=== PATIENT | female | born 1940 | race Caucasian/White ===

== ENCOUNTER 2016-08-29 21:03 | Emergency (ER) | payer MEDICARE ==
--- NOTE | 2016-08-29 22:56 | RAD ---
INDICATION: Intracranial injury COMPARISON: None TECHNIQUE: Noncontrast axial source images were acquired from the skull base to the vertex. FINDINGS: Ventricles/sulci: The ventricles and cisterns are normal in size and configuration for age. Brain parenchyma: There is periventricular white matter change compatible with chronic ischemia. Intracranial hemorrhage:None. Extra-axial spaces: There are no abnormal extra axial fluid collections or evidence of extra-axial mass. Calvarium: There is thickening of the calvarium with a couple appearance suggestive of fibrous dysplasia or possibly Padget disease Scalp: There is no evidence of scalp or extracalvarial soft tissue abnormality. Paranasal sinuses/mastoid: Air-fluid level right maxillary antrum. Other: None. IMPRESSION: No acute intracranial findings. Chronic microvascular ischemic change. 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 Air-fluid level right maxillary antrum.
--- NOTE | 2016-08-29 23:00 | RAD ---
INDICATION: Fall. Facial injury. COMPARISON: None TECHNIQUE: Axial source images were acquired from the vertex of the mandible through the orbits. Coronal and sagittal reconstructed images were acquired. FINDINGS: Bones: There is no acute facial bone fracture. There is a heterogeneous appearance of the osseous structures with thickening and I pleural. 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 Orbits: The globes and intraconal structures appear intact. The optic nerves are symmetric. Extraocular muscles appear normal. There is no intraconal inflammatory change or retrobulbar mass.. Paranasal sinuses: There is mild, bilateral, mucosal thickening involving the maxillary antra with a short air-fluid level in the right maxillary antrum. Brain: There are no acute abnormalities of the visualized brain parenchyma. Soft tissues: Normal Other: None The visualized soft tissue elements about the neck appear normal. IMPRESSION: NO ACUTE FACIAL BONE FRACTURE. 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 SINUSITIS.
[2016-08-29 23:29] VITALS: BP 148/60
--- NOTE | 2016-10-10 08:36 | ED ---
Head Injury - HPI Summary HPI Summary: Patient presents after tripping on a rug and falling forward, striking her forehead and nose on the floor. She denies LOC, vomiting, amnesia or neck pain. Her nose and cheek bones hurt. No vision changes or loose teeth. - History Of Current Complaint Chief Complaint: EDHeadInjury Stated Complaint: FALL Time Seen by Provider: 08/29/16 21:58 Hx Obtained From: Patient Mechanism Of Injury: Fall From A Standing Position Onset/Duration: Started Hours Ago Onset of Pain: Immediate Severity Currently: Moderate Severity Initially: Moderate Pain Intensity: 4 Pain Scale Used: 0-10 Numeric Location of Head Injury: Frontal Character: Dull, Aching Alleviating Factor(s): Ice Associated Signs And Symptoms: Bruising - Allergies/Home Medications Allergies/Adverse Reactions: Allergies Allergy/AdvReac Type Severity Reaction Status Date / Time Clindamycin Allergy Severe Rash And Verified 01/30/15 10:08 Itching Red Dye Allergy Severe Rash And Verified 01/30/15 10:08 Itching Green Dyes Allergy Intermediate Rash And Verified 01/30/15 10:08 Itching Penicillins Allergy Unknown Unknown Verified 01/30/15 10:08 Reaction Details ivp dye Allergy Severe Shortness Uncoded 01/30/15 10:08 of Breath Opiates and derivatives Allergy Intermediate GI Upset Uncoded 01/30/15 10:08 PMH/Surg Hx/FS Hx/Imm Hx Endocrine/Hematology History: Reports: Hx Diabetes Denies: Hx Thyroid Disease Cardiovascular History: Reports: Hx Hypertension Respiratory History: Reports: Hx Asthma Denies: Hx Chronic Obstructive Pulmonary Disease (COPD) GI History: Reports: Hx Ulcer Musculoskeletal History: Reports: Hx Osteoporosis - Cancer History Hx Chemotherapy: No Hx Radiation Therapy: No - Surgical History Surgery Procedure, Year, and Place: Tuberculosis, right ankle tumors, begnin breast tumors removed, tonsillectomy, gallbladder. Bilateral cataracts removed. Infectious Disease History: Yes Infectious Disease History: Denies: Hx Hepatitis, Hx Human Immunodeficiency Virus (HIV), Traveled Outside the [place] in Last 30 Days - Family History Known Family History: Positive: Cardiac Disease, Hypertension - Social History Occupation: Retired Alcohol Use: None Substance Use Type: Reports: None Smoking Status (MU): Former Smoker Review of Systems Negative: Blurred Vision Negative: Dental Pain Negative: Chest Pain Negative: Shortness Of Breath Negative: Abdominal Pain Negative: Myalgia, Decreased ROM, Edema Positive: Bruising - nasal Negative: Headache, Weakness, Paresthesia, Numbness, Syncope All Other Systems Reviewed And Are Negative: Yes Physical Exam Triage Information Reviewed: Yes Vital Signs On Initial Exam: Initial Vitals Temp Pulse Resp BP Pulse Ox 99.7 F 72 20 141/56 95 08/29/16 21:22 08/29/16 21:22 08/29/16 21:22 08/29/16 21:22 08/29/16 21:22 Vital Signs Reviewed: Yes Appearance: Positive: Well-Appearing, No Pain Distress, Well-Nourished Skin: Positive: Warm, Skin Color Reflects Adequate Perfusion, Dry, Tender - nasal bruising, Soft Head/Face: Positive: Normal Head/Face Inspection Eyes: Positive: EOMI, RUDDY, Conjunctiva Clear ENT: Positive: Hearing grossly normal, Pharynx normal, TMs normal Dental: Negative: Percussion Tenderness @ Neck: Positive: Supple, Nontender, No Lymphadenopathy Respiratory/Lung Sounds: Positive: Clear to Auscultation, Breath Sounds Present Cardiovascular: Positive: RRR Musculoskeletal: Positive: Strength/ROM Intact Neurological: Positive: Sensory/Motor Intact, Alert, Oriented to Person Place, Time, CN Intact II-III, NV Bundle Intact Distally, Normal Gait Psychiatric: Positive: Affect/Mood Appropriate AVPU Assessment: Alert - Woodrow Coma Scale Coma Scale Total: 15 Diagnostics - Vital Signs Vital Signs Temp Pulse Resp BP Pulse Ox 08/29/16 22:30 74 18 148/60 95 08/29/16 21:22 99.7 F 72 20 141/56 95 - Laboratory Lab Statement: Any lab studies that have been ordered have been reviewed, and results considered in the medical decision making process. - CT No standard instances CT Interpretation: No Acute Changes CT Interpretation Completed By: Radiologist Head Injury Course/Dx - Diagnoses Differential Diagnosis/HQI/PQRI: Cerebral Contusion, Cervical Sprain, Concussion With LOC, Contusion, Hematoma, Laceration, Nasal Fracture, Orbital Fracture, Skull Fracture Provider Diagnoses: Head injury, Contusion of nose Discharge - Discharge Plan Condition: Stable Disposition: HOME Patient Education Materials: Head Injury (ED), Nasal Contusion (ED) Referrals: Lance Powers MD [Primary Care Provider] - Additional Instructions: Please follow-up with Dr. Powers in 1-3 days for evaluation regarding your recent fall and to discuss your chronic vein issues. Return to the emergency department if your symptoms worsen.
== END 2016-08-29 23:29 | disposition home or self-care (01) ==
LOC: ED 21:03
DX: S00.33XA Contusion of nose, initial encounter (principal); S09.90XA Unspecified injury of head, initial encounter; W19.XXXA Unspecified fall, initial encounter; Y93.9 Activity, unspecified; Y92.9 Unspecified place or not applicable; Z87.891 Personal history of nicotine dependence
CPT/HCPCS: 70450; 70486; 99282

== ENCOUNTER 2017-07-19 10:34 | Emergency (ER) | payer MEDICARE, BC ==
[2017-07-19] MEDS ORDERED: NS 0.9% 1000 ML* 1,000 ML IV ONE (11:00)
[2017-07-19 11:27] LABS: ABS Basophils 0.1 10^3/ul (0-0.2); ABS Eosinophils 0.1 10^3/ul (0-0.6); ABS Lymphocytes 0.7 10^3/ul (1.0-4.8); ABS Monocytes 0.9 10^3/ul (0-0.8); ABS Neutrophils 7.8 10^3/ul (1.5-7.7); ABS Nucleated RBC 0 10^3/ul; Eosinophil % 0.9 % (0-6); Hematocrit 41 % (35-47); Lymphocyte % 7.5 % (25-47); Mean Corpuscular HGB Conc 34 g/dl (31-36); Mean Corpuscular Hemoglobin 28 pg (27-31); Mean Corpuscular Volume 83 fL (80-97); Mean Platelet Volume 11 um3 (7.4-10.4); Nucleated Red Blood Cells % 0; Platelet Count 170 10^3/ul (150-450); Red Blood Count 4.97 10^6/ul (4.0-5.4); Red Cell Distribution Width 14 % (10.5-15); White Blood Count 9.5 10^3/ul (3.5-10.8)
--- OUTSIDE RECORDS SUMMARY | 2017-07-19 11:40 | XMS REPORT ---
:1940 External Reference #:[id number] Author Organization [facility] Address [address] [address] Phone [phone] Care Team Providers Name Role Phone Lance Powers MD Care Team Information Inserting Operator Unavailable Lance Powers MD Primary Care Physician Unavailable Payers Type Date Identification Numbers Payment Provider Subscriber Medicare Primary Policy Number: [id number] Medicare Vega Villalpando PayID: [id number] [address] [place] [address] Medigap Part B Policy Number: [id number] [facility] Vega Villalpando PayID: [id number] [address] [place] [address] Problems Date Description Provider Status Onset: 04/22/2017 Disturbance in sleep behavior Pearl Mesa MD Active Family History Date Family Member(s) Problem(s) Comments General Hypertension Father Alzheimer's Disease Father due to Alzheimer's Disease () - at age 64 Father Diabetes Type II Father Coronary Artery Disease (CAD) Father Hypertension Father Hypercholesterolemia Mother Cerebrovascular Accident (CVA) Mother due to CAD () - at age 80 Mother Coronary Artery Disease (CAD) Mother Hypertension Siblings None Social History Type Date Description Comments Marital Status Single Marital Status Lives With Alone 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 General Hx Text emigrated to [place] from [facility] in 1965 has one son in [place]. Allergies, Adverse Reactions, Alerts Date Description Reaction Status Severity Comments 11/30/2016 Clindamycin active 11/30/2016 NSAIDS active 11/30/2016 Opiods - Morphine Analogues active 11/30/2016 Penicillin active Medications Medication Date Status Form Strength Qnty SIG Indications Ordering Provider Nitroglycerin 02/28/ Active Patches 0.1mg/HR 30unit 1 patch Sukhi 2016 24HR s every day F. on in the [place], in the M.D. morning, off in the at night Accu-Chek Soft / Active Misc Unknown Touch Lancets 0000 Atorvastatin / Active Tablets 20mg take 1 Unknown Calcium 0000 tablet a day Lisinopril / Active Tablets 20mg 1/2 by Unknown 0000 mouth every day Sertraline HCL / Active Tablets 25mg 1/2 by Unknown 0000 mouth every day Verapamil HCL / Active Caps ER 180mg 1 by mouth Unknown ER 0000 24HR every day Eye Vitamins / Active Capsules 1 daily Unknown 0000 Novolog Flexpen / Active Solution 100Unit/ML sliding Law, 0000 Pen-Inject scale MD Lance Clobetasol / Active Solution 0.05% as Mark, Propionate 0000 directed MD Olena Oxygen 12/15/ Hx Misc 1units please use Sukhi 2016 - o2 at F. 06/21/ [place] [facility] [place] ( pt M.D. does not use) Clobetasol / Hx Cream 0.05% Unknown Propionate 0000 - 2006 Insullin Aspart / Hx 100Unit 60u TDD Unknown Pen 0000 - (3ML) 2016 Lantus Solostar / Hx Solution 100Unit/ML as Unknown 0000 - Pen-Inject directed, 04/21/ 60units 2016 Metamucil Plus / Hx Capsules 1 cap prn Unknown Calcium 0000 - 2016 Multivitamin // Hx Chewtabs once a day Unknown Adult 0000 - 2016 Famotidine / Hx Tablets 20mg take one Unknown 0000 - tablet by 2016 twice a day Pantoprazole / Hx Tablets DR 20mg 1 by mouth Unknown Sodium 0000 - every day 2016 Humalog Kwikpen 00// Hx Solution 100Unit/ML sliding Unknown 0000 - Pen-Inject scale 2016 Vital Signs Date Vital Result Comment 06/22/2017 Height 61 inches 5'1" Weight 172.75 lb with shoes Heart Rate 82 /min BP Systolic Sitting 146 mmHg LA reg cuff BP Diastolic Sitting 82 mmHg LA reg cuff BMI (Body Mass Index) 32.6 kg/m2 Ejection Fraction >70% echo 12/31/16 04/22/2017 Height 61 inches 5'1" Weight 171.00 lb Heart Rate 60 /min BP Systolic Sitting 100 mmHg BP Diastolic Sitting 66 mmHg Respiratory Rate 14 /min O2 % BldC Oximetry 95 % BMI (Body Mass Index) 32.3 kg/m2 Neck Circumference in inches 17 03/04/2017 Height 61 inches 5'1" Weight 174.00 lb with shoes Heart Rate 72 /min BP Systolic Sitting 110 mmHg Lue lg cuff BP Diastolic Sitting 56 mmHg Lue lg cuff BP Systolic Standing 114 mmHg Lue lg cuff BP Diastolic Standing 60 mmHg Lue lg cuff Respiratory Rate 16 /min BMI (Body Mass Index) 32.9 kg/m2 Ejection Fraction >70% 12/31/16 ECHO 11/30/2016 Height 61 inches 5'1" Weight 172.75 lb with shoes Heart Rate 84 /min BP Systolic Sitting 138 mmHg LA lrg cuff BP Diastolic Sitting 64 mmHg LA lrg cuff BP Systolic Standing 123 mmHg la repeat sitting BP Diastolic Standing 62 mmHg la repeat sitting BMI (Body Mass Index) 32.6 kg/m2 Results Description No Information Procedures Date CPT Code Description Status 06/22/2017 64461 EKG Tracing & Interpretation Completed 06/07/2017 14421 Polysomnography Sleep Staging 4+ Parameters Completed 01/31/2017 53395 Stress ECHO Interpretation/Report Hospital Completed 01/31/2017 36986 Treadmill Interp/Report Only Completed 01/31/2017 64586 Stress Test Supervsn W/Out I/R Completed 12/31/2016 53823 ECHO Transthoracic, Real-Time 2D With Doppler And Color Completed Flow 12/21/2016 18106 Holter Monitor Review (24 hr)dr castañeda & interp Completed only 12/20/2016 24496 ECG Monitor/Recording W/Visual Superimposition Scanning Completed 11/30/2016 98000 EKG Tracing & Interpretation Completed 11/05/2003 97404 Color Doppler Completed 11/05/2003 82691 Pulse Doppler & Continuous Wave Completed 11/05/2003 74292 Echocardiogram Completed Encounters Type Date Location Provider CPT E/M Dx Office Visit 06/22/2017 11:00a [facility] Sukhi Ribeiro, 62453 G47.33 M.DWilla G47.9 R00.2 I35.0 R06.00 I10 I25.10 Office Visit 04/22/2017 11:00a [facility] [place] [address] G47.9 [facility] F51.5 Office Visit 03/04/2017 2:30p [facility] IRENE Warren [address] R00.2 I35.0 R06.00 R07.9 I10 R94.39 Office Visit 01/31/2017 4:23p [facility] Sukhi Ribeiro M.D. 23263 R07.9 R06.00 Office Visit 11/30/2016 2:00p [facility] Sukhi Ribeiro, 53509 R94.31 M.DWilla R07.89 R00.2 I73.9 R07.9 E08.21 R01.1 I49.1 G47.9 E66.9 Plan of Care Future Appointment(s):09/14/2017 1:30 pm - Sukhi Ribeiro M.D. at [facility]07/13/2017 2:00 pm - Nurse Visit cc at [facility]07/06/2017 2 :10 pm - Herrera Pratt MD at [facility] Unezepfriag42/03/2018 11:15 am - Yvette Lemon DNP, RN, SWITCH CLEANER-BC at [facility]06/22/2017 - Sukhi Ribeiro M.D.G47.33 Obstructive sleep apnea (adult) (pediatric) Follow up:followup with sleep zxybvbG89.9 Sleep disorder, ewkwtwctzdmC03.2 MwgjogwsqsmjL20.0 Nonrheumatic aortic (valve) stenosisFollow up:bp check in 2-3 weeks ov 3 mR06.00 Dyspnea, tmxtvanjbahI12 Essential (primary) iucecejaqpmrV22.10 Athscl heart disease of [place] coronary artery w/o ang pctrs
--- OUTSIDE RECORDS SUMMARY | 2017-07-19 11:40 | XMS REPORT ---
:1940 External Reference #:[id number] Author Organization [facility] Address [address] [address] Phone [phone] Care Team Providers Name Role Phone Lance Powers MD Care Team Information Personal Insurance Advisor Unavailable Lance Powers MD Primary Care Physician Unavailable Payers Type Date Identification Numbers Payment Provider Subscriber Medicare Primary Policy Number: [id number] Medicare Vega Villalpando PayID: [id number] [address] [place] [address] Medigap Part B Policy Number: [id number] [facility] Vega Villalpando PayID: [id number] [address] [place] [address] Problems Date Description Provider Status Onset: 04/22/2017 [...] Lives With Alone 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 Allergies, Adverse Reactions, Alerts Date Description Reaction Status Severity Comments 11/30/2016 Clindamycin active 11/30/2016 NSAIDS active 11/30/2016 Opiods - Morphine Analogues active 11/30/2016 Penicillin active Medications Medication Date Status Form Strength Qnty SIG Indications Ordering Provider Nitroglycerin 02/28/ Active Patches 0.1mg/HR 30unit 1 patch Sukhi 2016 24HR s every day F. on in the [place], in the M.D. morning, off in the [...] Flexpen / Active Solution 100Unit/ML sliding Law, Pen-Inject scale MD Lance Clobetasol / Active Solution 0.05% as Mark, Propionate 0000 directed MD Olena Oxygen 12/15/ Hx Misc 1units please use Sukhi 2016 - o2 at [place]. 06[place] [facility] [place] ( pt M.D. does not use) Clobetasol / Hx Cream 0.05% Unknown Propionate 0000 - 2006 Insullin Aspart / Hx 100Unit 60u TDD Unknown Pen 0000 - (3ML) 2016 Lantus Solostar / Hx Solution 100Unit/ML as Unknown 0000 - Pen-Inject directed, 04/21/ 60units 2016 Metamucil Plus / Hx Capsules 1 cap prn Unknown Calcium 0000 - 2016 Multivitamin / Hx Chewtabs once a day Unknown Adult 0000 - 2016 Famotidine / Hx Tablets 20mg take one Unknown 0000 - tablet by 2016 twice a day Pantoprazole / Hx Tablets DR 20mg 1 by mouth Unknown Sodium 0000 - every day 2016 Humalog Kwikpen 00/00/ Hx Solution 100Unit/ML sliding Unknown 0000 - Pen-Inject scale 2016 Vital Signs Date Vital Result Comment 07/06/2017 Height 61 inches 5'1" Weight 174.25 lb no shoes Heart Rate 86 /min BP Systolic Sitting 140 mmHg Lue reg cuff BP Diastolic Sitting 84 mmHg Lue reg cuff Respiratory Rate 16 /min O2 % BldC Oximetry 96 % On Ra BMI (Body Mass Index) 32.9 kg/m2 06/22/2017 Height 61 inches 5'1" Weight 172.75 [...] Procedures Date CPT Code Description Status 06/22/2017 04690 EKG Tracing & Interpretation Completed 06/07/2017 02670 Polysomnography Sleep Staging 4+ Parameters Completed 01/31/2017 69198 Stress ECHO Interpretation/Report Hospital Completed 01/31/2017 24667 Treadmill Interp/Report Only Completed 01/31/2017 30386 Stress Test Supervsn W/Out I/R Completed 12/31/2016 49055 ECHO Transthoracic, Real-Time 2D With Doppler And Color Completed Flow 12/21/2016 93113 Holter Monitor Review (24 hr)dr castañeda & rosalva Completed only 12/20/2016 84059 ECG Monitor/Recording W/Visual Superimposition Scanning Completed 11/30/2016 04806 EKG Tracing & Interpretation Completed 11/05/2003 06978 Color Doppler Completed 11/05/2003 85251 Pulse Doppler & Continuous Wave Completed 11/05/2003 14699 Echocardiogram Completed Encounters Type Date Location Provider CPT E/M Dx Office Visit 06/22/2017 11:00a [facility] Sukhi Ribeiro, [address]72 G47.33 M.D. G47.9 R00.2 I35.0 R06.00 I10 I25.10 Office Visit 04/22/2017 11:00a [facility] [place] [address] G47.9 [facility] F51.5 Office Visit 03/04/2017 2:30p [facility] IRENE Warren [address]82[address] R00.2 I35.0 R06.00 R07.9 I10 R94.39 Office Visit 01/31/2017 4:23p [facility] Sukhi Ribeiro M.D. 05450 R07.9 R06.00 Office Visit 11/30/2016 2:00p [facility] Sukhi Ribeiro, 08092 R94.31 M.D. R07.89 R00.2 I73.9 R07.9 E08.21 R01.1 I49.1 G47.9 E66.9 Plan of Care Future Appointment(s):09/07/2017 1:30 pm - Yvette Lemon DNP, RN, PRESALES ENGINEER-BC at [facility]09/14/2017 1:30 pm - Sukhi Ribeiro M.D. at [facility]07/13/2017 2:00 pm - Nurse Visit cc at [facility]07/06/2017 - Yvette Lemon DNP, RN, PRESALES ENGINEER-BCG47.33 Obstructive sleep apnea (adult) (pediatric)Comments:NPSG 06/07/17 AHI 35.8/hour, ravi oxygen 82 % (severe sleep apnea)Follow up:6 weeksRecommendations:Sleep apnea to start PAP at 5-15 cm Review of sleep study in detail. Review of risks of untreated sleep apnea including cardiovascular events : rhythm irregularities, heart attack, stroke; gastro esophageal reflux disease (GERD); diabetes; anxiety, depression; highblood pressure; accidents (machinery and automobile) Recommendation for PAP other treatment modalities NON-PAP including oral appliance/mandibular advancement device, positional strategies , and surgery discussed. Referral for PAP device to be sent to [facility] phone: [phone] Equipment appointment will take about 45 minutes, the DME provider will call you within 5 days to set you up for the device. If you do not hear from them call the Sleep Center. The mask will have a 30-day guarantee, if you have mask problems call the DME provider to have a fitting for a different mask. If you have problems with the air pressure call the sleep center and speak toa nurse. If you have any sleepiness while driving you MUST avoid operating a vehicle or machinery. If you have any further questions, please call the Sleep Disorder Center at [phone].
[2017-07-19 11:43] LABS: EGFR Non-African American 60.1 (>60)
--- NOTE | 2017-07-19 12:16 | RAD ---
Indication: Hypoglycemia. Comparison: March 12, 2010 chest radiograph. Technique: Upright AP 1125 hours Report: Obese body habitus limits image quality. Chronic mild to moderate elevation of the RIGHT hemidiaphragm with minimal associated RIGHT basilar atelectasis. Mild prominence of the interstitial markings. No compelling alveolar consolidation or focal pulmonary lesion. Grossly clear pleural spaces. Negative for pneumothorax. Accounting for leftward rotation the heart appears top normal in size. Unremarkable central pulmonary vasculature. IMPRESSION: No acute cardiopulmonary process evident.
[2017-07-19] MEDS ORDERED: Magnesium Oxide TAB* 400 MG PO ONE (12:20)
[2017-07-19 12:21] LABS: Urine Appearance Clear; Urine Specific Gravity 1.005 (1.010-1.030); Urine Urobilinogen Negative (Negative)
[2017-07-19 12:22] LABS: Urine Blood Negative (Negative); Urine Ketones Negative (Negative); Urine Protein Negative (Negative)
[2017-07-19 12:25] LABS: Urine Color Straw
[2017-07-19 12:45] VITALS: BP 167/72
[2017-07-19 13:09] LABS: INR 0.95 (0.77-1.02)
--- NOTE | 2017-07-19 19:54 | ED ---
Eb Benitez Angela, scribed for Kate Simpson MD on 07/19/17 at 1111 . HPI Diabetic - HPI Summary HPI Summary: This pt is a 77 y/o female presenting to [facility] via EMS c/o hypoglycemia today. Pt is an insulin dependent diabetic. Pt reports she checked her blood glucose today and it was 45 before breakfast. She gave her self 55 units of Toujeo and 14 units of Novolog. Pt notes she began to have visual changes, generalized weakness, felt tired and sleepy. Pt called the ambulance and EMS found the pt to have blood glucose of 79 and when rechecked it was 69. EMS additionally administered 250 CC D10. Pt denies chest pain, SOB, abd pain, vomiting, edema. She reports she had a bowel movement this morning and has had no difficulties urinating. PMHx: IDDM, sleep apnea, heart fluttering. 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 Pt reports she has been on BIPAP for 1 week and her blood glucose has been dropping ever since this started. PCP: Dr. Lance Powers. - History Of Current Complaint Chief Complaint: EDDiabeticProb Time Seen by Provider: 07/19/17 11:00 Hx Obtained From: Patient Onset/Duration: Lasting Hours, Resolved Timing: Hours Severity Initially: Severe Severity Currently: None Character: Lethargic Alleviating: EMS Treatment - 250 CC of D10 Associated Signs & Symptoms: Negative - denies any complaints currently - Allergies/Home Medications Allergies/Adverse Reactions: Allergies Allergy/AdvReac Type Severity Reaction Status Date / Time Clindamycin Allergy Severe Rash And Verified 01/30/15 10:08 Itching Red Dye Allergy Severe Rash And Verified 01/30/15 10:08 Itching Green Dyes Allergy Intermediate Rash And Verified 01/30/15 10:08 Itching Penicillins Allergy Unknown Unknown Verified 01/30/15 10:08 Reaction Details NSAIDs Allergy Unknown Verified 01/28/17 15:30 Reaction Details ivp dye Allergy Severe Shortness Uncoded 01/30/15 10:08 of Breath Opiates and derivatives Allergy Intermediate GI Upset Uncoded 01/30/15 10:08 PMH/Surg Hx/FS Hx/Imm Hx Endocrine/Hematology History: Reports: Hx Diabetes Denies: Hx Thyroid Disease Cardiovascular History: Reports: Hx Angina, Hx Atrial Fibrillation, Hx Hypertension, Hx Valvular Heart Disease Respiratory History: Reports: Hx Asthma Denies: Hx Chronic Obstructive Pulmonary Disease (COPD) GI History: Reports: Hx Ulcer Musculoskeletal History: Reports: Hx Osteoporosis - Cancer History Hx Chemotherapy: No Hx Radiation Therapy: No - Surgical History Surgery Procedure, Year, and Place: Tuberculosis, right ankle tumors, begnin breast tumors removed, tonsillectomy, gallbladder. Bilateral cataracts removed. 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 Denies: Hx Clostridium Difficile, Hx Hepatitis, Hx Human Immunodeficiency Virus (HIV), Hx of Known/Suspected MRSA, History Other Infectious Disease, Traveled Outside the [place] in Last 30 Days - Family History Known Family History: Positive: Cardiac Disease, Hypertension - Social History Alcohol Use: None Substance Use Type: Reports: None Smoking Status (MU): Former Smoker Type: Cigarettes Amount Used/How Often: 4-5 day Have You Smoked in the Last Year: No Review of Systems Positive: Fatigue - now resolved, Other - tired, now resolved. Negative: Fever Eyes: Other - visual changes, now resolved Negative: Chest Pain Negative: Shortness Of Breath Negative: Abdominal Pain, Vomiting Negative: Edema All Other Systems Reviewed And Are Negative: Yes Physical Exam - Summary Physical Exam Summary: Appearance: Ill-appearing, no pain distress, Well-nourished Skin: Warm, color reflects adequate perfusion Head: Normal Head/Face inspection Eyes: Conjunctiva clear ENT: Normal ENT inspection Neck: Supple, no nodes, no JVD Respiratory: Lungs clear, Normal breath sounds, no respiratory distress Cardio: RRR, No murmur, pulses normal, brisk capillary refill Abdomen: soft, nontender Bowel sounds: present Musculoskeletal: Strength Intact/ ROM intact. No calf tenderness. No edema. Neuro: Alert, muscle tone normal, facial symmetry, speech normal, sensory/motor intact Psychological: Normal Triage Information Reviewed: Yes Vital Signs On Initial Exam: Initial Vitals Temp Pulse Resp BP Pulse Ox 98 F 82 20 184/58 97 07/19/17 10:54 07/19/17 10:54 07/19/17 10:54 07/19/17 10:54 07/19/17 10:54 Vital Signs Reviewed: Yes Diagnostics - Vital Signs Vital Signs Temp Pulse Resp BP Pulse Ox 07/19/17 10:54 98 F 82 20 184/58 97 - Laboratory Lab Results: Lab Results 07/19/17 07/19/17 07/19/17 Range/Units 11:17 11:17 11:17 WBC 9.5 (3.5-10.8) 10^3/ul RBC 4.97 (4.0-5.4) 10^6/ul Hgb 14.0 (12.0-16.0) g/dl Hct 41 (35-47) % MCV 83 (80-97) fL MCH 28 (27-31) pg MCHC 34 (31-36) g/dl RDW 14 (10.5-15) % Plt Count 170 (150-450) 10^3/ul MPV 11 H (7.4-10.4) um3 Neut % (Auto) 81.8 (38-83) % Lymph % (Auto) 7.5 L (25-47) % Kern % (Auto) 9.2 H (1-9) % Eos % (Auto) 0.9 (0-6) % Baso % (Auto) 0.6 (0-2) % Absolute Neuts (auto) 7.8 H (1.5-7.7) 10^3/ul Absolute Lymphs (auto) 0.7 L (1.0-4.8) 10^3/ul Absolute Monos (auto) 0.9 H (0-0.8) 10^3/ul Absolute Eos (auto) 0.1 (0-0.6) 10^3/ul Absolute Basos (auto) 0.1 (0-0.2) 10^3/ul Absolute Nucleated RBC 0 10^3/ul Nucleated RBC % 0 INR (Anticoag Therapy) 0.95 (0.77-1.02) APTT 32.1 (26.0-36.3) seconds Sodium 135 (133-145) mmol/L Potassium 4.3 (3.5-5.0) mmol/L Chloride 101 (101-111) mmol/L Carbon Dioxide 29 (22-32) mmol/L Anion Gap 5 (2-11) mmol/L BUN 15 (6-24) mg/dL Creatinine 0.91 (0.51-0.95) mg/dL Est GFR ( Amer) 77.3 (>60) Est GFR (Non-Af Amer) 60.1 (>60) BUN/Creatinine Ratio 16.5 (8-20) Glucose 161 H (70-100) mg/dL POC Glucose (mg/dL) (70-100) mg/dL Lactic Acid (0.5-2.0) mmol/L Calcium 9.6 (8.6-10.3) mg/dL Magnesium 1.6 L (1.9-2.7) mg/dL Total Bilirubin 0.50 (0.2-1.0) mg/dL AST 15 (13-39) U/L ALT 13 (7-52) U/L Alkaline Phosphatase 71 (34-104) U/L Total Creatine Kinase 52 (10-223) U/L Troponin I 0.03 (<0.04) ng/mL C-Reactive Protein 2.73 (< 5.00) mg/L Total Protein 7.0 (6.4-8.9) g/dL Albumin 4.0 (3.2-5.2) g/dL Globulin 3.0 (2-4) g/dL Albumin/Globulin Ratio 1.3 (1-3) Lipase 17 (11.0-82.0) U/L Urine Color Urine Appearance Urine pH (5-9) Ur Specific [place] (1.010-1.030) Urine Protein (Negative) Urine Ketones (Negative) Urine Blood (Negative) Urine Nitrate (Negative) Urine Bilirubin (Negative) Urine Urobilinogen (Negative) Ur Leukocyte Esterase (Negative) Urine WBC (Auto) (Absent) Urine RBC (Auto) (Absent) Ur Squamous Epith Cells (Absent) Urine Bacteria (Absent) Urine Glucose (Negative) 07/19/17 07/19/17 07/19/17 Range/Units 11:17 11:30 12:43 WBC (3.5-10.8) 10^3/ul RBC (4.0-5.4) 10^6/ul Hgb (12.0-16.0) g/dl Hct (35-47) % MCV (80-97) fL MCH (27-31) pg MCHC (31-36) g/dl RDW (10.5-15) % Plt Count (150-450) 10^3/ul MPV (7.4-10.4) um3 Neut % (Auto) (38-83) % Lymph % (Auto) (25-47) % Kern % (Auto) (1-9) % Eos % (Auto) (0-6) % Baso % (Auto) (0-2) % Absolute Neuts (auto) (1.5-7.7) 10^3/ul Absolute Lymphs (auto) (1.0-4.8) 10^3/ul Absolute Monos (auto) (0-0.8) 10^3/ul Absolute Eos (auto) (0-0.6) 10^3/ul Absolute Basos (auto) (0-0.2) 10^3/ul Absolute Nucleated RBC 10^3/ul Nucleated RBC % INR (Anticoag Therapy) (0.77-1.02) APTT (26.0-36.3) seconds Sodium (133-145) mmol/L Potassium (3.5-5.0) mmol/L Chloride (101-111) mmol/L Carbon Dioxide (22-32) mmol/L Anion Gap (2-11) mmol/L BUN (6-24) mg/dL Creatinine (0.51-0.95) mg/dL Est GFR ( Amer) (>60) Est GFR (Non-Af Amer) (>60) BUN/Creatinine Ratio (8-20) Glucose (70-100) mg/dL POC Glucose (mg/dL) 199 H (70-100) mg/dL Lactic Acid 1.4 (0.5-2.0) mmol/L Calcium (8.6-10.3) mg/dL Magnesium (1.9-2.7) mg/dL Total Bilirubin (0.2-1.0) mg/dL AST (13-39) U/L ALT (7-52) U/L Alkaline Phosphatase (34-104) U/L Total Creatine Kinase (10-223) U/L Troponin I (<0.04) ng/mL C-Reactive Protein (< 5.00) mg/L Total Protein (6.4-8.9) g/dL Albumin (3.2-5.2) g/dL Globulin (2-4) g/dL Albumin/Globulin Ratio (1-3) Lipase (11.0-82.0) U/L Urine Color Straw Urine Appearance Clear Urine pH 6 (5-9) Ur Specific [place] 1.005 L (1.010-1.030) Urine Protein Negative (Negative) Urine Ketones Negative (Negative) Urine Blood Negative (Negative) Urine Nitrate Negative (Negative) Urine Bilirubin Negative (Negative) Urine Urobilinogen Negative (Negative) Ur Leukocyte Esterase 1+ H (Negative) Urine WBC (Auto) 3+(>20/hpf) H (Absent) Urine RBC (Auto) 2+(6-10/hpf) H (Absent) Ur Squamous Epith Cells Present H (Absent) Urine Bacteria 1+ H (Absent) Urine Glucose Negative (Negative) Result Diagrams: 07/19/17 11:17 07/19/17 11:17 Lab Statement: Any lab studies that have been ordered have been reviewed, and results considered in the medical decision making process. - Radiology Chest XR Xray Interpretation: No Acute Changes - IMPRESSION: No acute cardiopulmonary process evident. Dr. Simpson has reviewed this radiology report. Radiology Interpretation Completed By: Radiologist - EKG 11:11 Cardiac Rate: NL EKG Rhythm: Sinus Rhythm - at [address] Segment: Non-Specific Ectopy: None EKG Interpretation: Nml AVIVCT. Nml QTc. Negative axis (-42). EKG Comparison: No Significant Change - no significant change compared to . Re-Evaluation - Re-Evaluation First Eval Re-Evaluation Time: 12:23 Comment: Pt just finished eating lunch. Diabetic Course/Dx - Course Course Of Treatment: Pt medications reviewed this visit. Allergies noted. High blood pressure noted. Chest XR is negative. EKG shows NSR with Nml AVIVCT. Nml QTc. Negative axis (-42). Pt's repeat glucose in the ED was 199. In the ED course, the pt was given IV fluids and magnesium oxide. Pt will be discharged home and is advised to follow up with her PCP. - Diagnoses Provider Diagnoses: Hypoglycemia Discharge - Discharge Plan Condition: Stable Disposition: HOME Patient Education Materials: Hypoglycemia in a Person with Diabetes (ED) Referrals: Lance Powers MD [Primary Care Provider] - 2 Days Additional Instructions: RETURN TO THE EMERGENCY DEPARTMENT FOR ANY NEW OR WORSENING SYMPTOMS. The documentation as recorded by the Eb rai Angela accurately reflects the service I personally performed and the decisions made by Calvin castellanos Barbara J, MD.
== END 2017-07-19 12:59 | disposition home or self-care (01) ==
LOC: ED 10:34
DX: E16.2 Hypoglycemia, unspecified (principal); R53.83 Other fatigue; E11.9 Type 2 diabetes mellitus without complications; Z87.891 Personal history of nicotine dependence
CPT/HCPCS: 36415; 71045; 80053; 81003; 81015; 82550; 83605; 83690; 83735; 84484; 85025; 85610; 85730; 86140; 87086; 93005; 96360; 99284

== ENCOUNTER 2018-11-26 10:51 | Emergency (ER) | payer MEDICARE, BC ==
--- OUTSIDE RECORDS SUMMARY | 2018-11-26 10:59 | XMS REPORT | Continuity of Care Document ---
:1940 External Reference #:[id number] Author Name Bhavesh Taylor, OD Address [address] [place] [address] Care Team Providers Name Role Phone Lance Powers MD Care Team Information Exhibit Technician Unavailable Law CAPUTO, Lance Primary Care Physician Unavailable Payers Date Identification Numbers Payment Provider Subscriber Policy Number: [id number] [employer] [place] [place] PayID: [id number] [address] [place] [address] Policy Number: [id number] [employer] PayID: [id number] [address] [place] [address] Problems Active Problems Provider Date Type 2 diabetes mellitus Austyn Lainez M.D. Onset: 03/13/2015 Presence of intraocular lens Austyn Lainez M.D. Onset: 03/13/2015 Epiretinal membrane Austyn Lainez M.D. Onset: 03/13/2015 Family History Date Family Member(s) Observation Comments General Cancer General Aunt Father Cataract Father Heart Disease Mother Cataract Mother Heart Disease Social History Type Date Description Comments Sex Unknown ETOH Use Denies alcohol use Tobacco Use Start: Unknown Patient has never smoked Smoking Status Reviewed: 11/14/18 Patient has never smoked Allergies, Adverse Reactions, Alerts Active Allergies Reaction Severity Comments Date Penicillin 03/13/2015 Strawberries 10/23/2015 Medications Active Medications SIG Qnty Indications Ordering Provider Date Probiotic Unknown Tablets DR Zinc 50mg Unknown Tablets Selenium 50mcg Unknown Tablets Icaps Areds Formula Unknown Tablets Lutein 20mg Unknown Capsules B Complex Unknown Tablets Metoprolol Succinate ER Unknown 25mg Tablets ER 24HR Amlodipine Besylate Unknown 5mg Tablets Triamcinolone Acetonide Unknown 0.1% Cream Pantoprazole Sodium Unknown 20mg Tablets DR Clari Carlton Unknown 100Unit/ML Solution Pen-Inject Atorvastatin Calcium Law CAPUTO, Lance 20mg Tablets Verapamil HCL ER Law CAPUTO, Lance 180mg Tablets ER Sertraline HCL Law CAPUTO, Lance 25mg Tablets Clobetasol Propionate Unknown 0.05% Solution Lisinopril 20mg Law CAPUTO, Lance Tablets Chatotus Rao Powers MD, Lance 100Unit/ML Solution Pen-Inject History Medications Wilver 128 1/4 inch ribbon 3.500gm Bhavesh Taylor, OD 05/17/2018 - 5% Ointment onto ocular 11/14/2018 surface every night at bedtime both eyes Ocusoft Lid Scrub Plus apply to outer 30units Bhavesh Taylor, OD 2015 - eyelids bid OU 11/14/2018 Pads Azithromycin Unknown - 250mg 05/17/2018 Tablets Vital Signs Date Vital Result Comment 11/14/2017 10:11am Intraocular Pressure Right Eye 15 mmHg Intraocular Pressure Left Eye 15 mmHg 10/28/2016 10:48am Intraocular Pressure Right Eye 15 mmHg Intraocular Pressure Left Eye 15 mmHg 04/29/2016 1:21pm Intraocular Pressure Right Eye 14 mmHg Intraocular Pressure Left Eye 14 mmHg 10/23/2015 10:28am Intraocular Pressure Right Eye 15 mmHg Intraocular Pressure Left Eye 15 mmHg 03/13/2015 8:23am Intraocular Pressure Right Eye 15 mmHg Intraocular Pressure Left Eye 15 mmHg Procedures Date Code Description Status 05/17/2018 12191 Oct Retina Completed 05/17/2018 38811 Eye Exam Est Intermediate Completed 11/14/2017 40922 Fundus Photography W/Interpretation & Report Completed 11/14/2017 79119 Refraction Completed 11/14/2017 25904 Eye Exam Est Intermediate Completed 04/29/2017 86479 Oct Retina Completed 04/29/2017 93563 Eye Exam Est Intermediate Completed 10/28/2016 38208 Ophthalmoscopy Subsequent Completed 10/28/2016 98575 Oct Retina Completed 10/28/2016 34616 Refraction Completed 10/28/2016 49243 Eye Exam Est Comprehensive Completed 09/23/2016 23784 Eye Exam Est Intermediate Completed 04/29/2016 01723 Oct Retina Completed 04/29/2016 54976 Eye Exam Est Intermediate Completed 10/23/2015 84655 Eye Exam Est Intermediate Completed 10/23/2015 34980 Fundus Photography W/Interpretation & Report Completed 04/21/2015 83894 Oct Retina Completed 04/21/2015 98807 Eye Exam Est Intermediate Completed 03/13/2015 48160 Fundus Photography W/Interpretation & Report Completed 03/13/2015 63993 Refraction Completed 03/13/2015 40772 Eye Exam Est Comprehensive Completed 03/09/2011 26504 Fundus Photography W/Interpretation & Report Completed 03/09/2011 16627 Ophthalmoscopy Subsequent Completed 03/09/2011 62580 Eye Exam Est Comprehensive Completed 05/07/2009 84453 Fundus Photography W/Interpretation & Report Completed 05/07/2009 04304 Ophthalmoscopy Initial Completed 05/07/2009 77427 Refraction Completed 05/07/2009 42011 Eye Exam New Comprehensive Completed Plan of Treatment 11/14/2018 - Bhavesh Taylor, ODH35.342 Macular cyst, hole, or pseudohole, left eyeH35.371 Puckering of macula, right eyeZ96.1 Presence of intraocular lensH18.51 Endothelial corneal [id number] Type 2 diabetes mellitus without lgeqmwiwcejywV26.4 PresbyopiaFollow up:6 mos mac OCT, sooner PRN
--- OUTSIDE RECORDS SUMMARY | 2018-11-26 10:59 | XMS REPORT | Continuity of Care Document ---
:1940 External Reference #:[id number] Author Name Jackeline Kelly Care Team Providers Name Role Phone Lance Powers MD Primary Care Physician Unavailable Payers Date Identification Numbers Payment Provider Subscriber Policy Number: [id number] Medicare Vega Villalpando PayID: [id number] [address] [place] [address] Policy Number: [id number] [facility] Vega Villalpando PayID: [id number] [address] [place] [address] Advance Directives Description No Information Available Problems Active Problems Provider Date Disturbance in sleep behavior Pearl Mesa MD Onset: 04/22/2017 Obstructive sleep apnea syndrome Yvette Lemon DNP, RN, Onset: 09/07/2017 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 Arthralgia of the ankle and/or foot Snow Menjivar MD Onset: 01/24/2018 Knee joint effusion Snow Menjivar MD Onset: 12/30/2017 Localized, primary osteoarthritis Snow Menjivar MD Onset: 12/30/2017 Family History Date Family Member(s) Observation Comments General Hypertension Father Alzheimer's Disease Father due to Alzheimer's Disease () - at age 64 Father Diabetes Type II Father Coronary Artery Disease (CAD) Father Hypertension Father Hypercholesterolemia Mother Cerebrovascular Accident (CVA) Mother due to CAD () - at age 80 Mother Coronary Artery Disease (CAD) Mother Hypertension Siblings None Social History Type Date Description Comments Sex Unknown Marital Status Single Marital Status Lives With Alone 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 [employer] Cigarette Use Quit 50 Years Ago 50+ years ago ETOH Use Denies alcohol use Tobacco Use Start: Unknown Patient is a former smoked 4 cigarettes End: Unknown smoker per day for 6yrs Recreational Drug Use Denies Drug Use Smoking Status Reviewed: 11/08/18 Patient is a former smoked 4 cigarettes smoker per day for 6yrs Exercise Type/Frequency Exercises regularly 2-3 minutes of routine exercise daily Allergies, Adverse Reactions, Alerts Active Allergies Reaction Severity Comments Date Clindamycin 11/30/2016 NSAIDS 11/30/2016 Opiods - Morphine Analogues 11/30/2016 Penicillin 11/30/2016 Medications Active Medications SIG Qnty Indications Ordering Provider Date Magnesium Taurate 1 po qd (125 mg) Sukhi Goldstein 10/12/2018 Clemencia Ribeiro Amlodipine Besylate 1.5 by mouth 90tabs I25.10 Sukhi Goldstein 05/01/2018 5mg every day Clemencia Ribeiro Tablets Metoprolol Succinate 1 by mouth every 45tabs I25.10 Lee Ann Ramirez, 05/01 ER day N.P. 25mg Tablets ER 24HR Shower Transfer Bench Disp 1 shower 1units M25.462 Snow Menjivar MD 2017 transfer bench Ht 61 Wt 172 M17.12 Shower Bars Disp 1 set of shower bars Ht 1units M25.462 Snow Menjivar MD 12/30/2017 61 wt 172 M17.12 Nitroglycerin 1 patch every day on 90units Sukhi Ribeiro, 2017 0.1mg/HR Patches in the in the M.D. 24HR morning, off in the at night Magnesium take one capsule Unknown 500mg Tablets three times a week Probiotic 1 by mouth every day Unknown Capsules Selenium PO three times a Unknown Tablets week. Does not know dose Zinc three times a week. Unknown Capsules Does not know dose Lantus Solostar inject 50-60 units Unknown 100Unit/ML daily Solution Pen-Inject Vitamin B12 TR 3 times a week Unknown 1000mcg Tablets ER Clobetasol Propionate as directed on scalp Olena Flores, 0.05% MD Solution Novolog Flexpen sliding scale Lance Powers MD 100Unit/ML Solution Pen-Inject Eye Vitamins 1 daily Unknown Capsules Sertraline HCL 1/2 by mouth every Unknown 25mg Tablets day Atorvastatin Calcium take 1 tablet a day Unknown 20mg Tablets Accu-Chek Soft Touch Unknown Lancets Misc History Medications Metoprolol Succinate 1 by mouth every day 30tabs I10 Sukhi Goldstein 2017 - ER Clemencia Ribeiro 03/15/2018 25mg Tablets ER 24HR Lisinopril 1 by mouth every day. 30tabs I10 Sukhi Goldstein 07/15/2017 - 5mg states taking about 3 Clemencia Ribeiro 03/07/2018 Tablets times per week due to lightheadedness 11/07/17 Oxygen please use o2 at 1units Sukhi Goldstein 12/15/2016 - Misc 2l/min at night ( pt Clemencia Ribeiro 06/21/2017 does not use) Magnesium 1 by mouth twice Unknown - Tablets weekly 10/11/2018 Ana Yeh as directed Unknown - 09/06/2017 300Unit/ML Solution Pen-Inject Metamucil 1 by mouth every day Unknown - 0.52gm 09/06/2017 Capsules Magnesium 1 by mouth 2 days per Unknown - 400mg week 03/06/2018 Tablets Humalog Kwikpen sliding scale Unknown - 03/03/2017 100Unit/ML Solution Pen-Inject Pantoprazole Sodium 1 by mouth every day Unknown - 11/23/2016 20mg Tablets Famotidine take one tablet by Unknown - 20mg mouth twice a day 11/23/2016 Tablets Verapamil HCL ER 1 by mouth every day Unknown - 05/01/2018 180mg Caps ER 24HR Multivitamin Adult once a day Unknown - 11/29/2016 Chewtabs Metamucil Plus 1 cap prn Unknown - Calcium 03/03/2017 Capsules Lisinopril 1/2 by mouth every day Unknown - 20mg 07/15/2017 Tablets Lantus Solostar as directed, 60units Unknown - 04/21/2017 100Unit/ML Solution Pen-Inject Insullin Aspart Pen 60u TDD Unknown - 03/03/2017 100Unit (3ML) Clobetasol Unknown - Propionate 11/29/2006 0.05% Cream Immunizations Description No Information Available Vital Signs Date Vital Result Comment 11/08/2018 11:14am Height 61 inches 5'1" Weight 169.00 lb Heart Rate 68 /min BP Systolic Sitting 142 mmHg left upper arm regular cuff BP Diastolic Sitting 70 mmHg left upper arm regular cuff Respiratory Rate 12 /min O2 % BldC Oximetry 97 % BMI (Body Mass Index) 31.9 kg/m2 09/01/2018 1:41pm Height 61 inches 5'1" Weight 170.25 lb Heart Rate 60 /min BP Systolic 120 mmHg inaccurate, rechecked BP (see below) BP Diastolic 65 mmHg inaccurate, rechecked BP (see below) BP Systolic Sitting 158 mmHg Ra, reg BP Diastolic Sitting 70 mmHg Ra, reg BP Systolic Standing 148 mmHg la repeat MD BP Diastolic Standing 70 mmHg la repeat MD BMI (Body Mass Index) 32.2 kg/m2 Ejection Fraction 65-70% 03/17/18 echo 06/07/2018 8:48am Height 61 inches 5'1" Weight 168.50 lb without shoes Heart Rate 68 /min BP Systolic 142 mmHg BP Diastolic 56 mmHg BMI (Body Mass Index) 31.8 kg/m2 Ejection Fraction 65-70% echocardiogram 03/17/18 05/18/2018 11:06am Heart Rate 72 /min BP Systolic Sitting 164 mmHg left arm BP Diastolic Sitting 80 mmHg left arm 05/01/2018 2:38pm Weight 165.00 lb with shoes Heart Rate 80 /min BP Systolic Sitting 130 mmHg Rue lg cuff BP Diastolic Sitting 60 mmHg Rue lg cuff Respiratory Rate 17 /min Ejection Fraction 65-70% date 03/17/18 ECHO 04/27/2018 9:20am Heart Rate 76 /min BP Systolic 136 mmHg BP Diastolic 82 mmHg Respiratory Rate 18 /min Pain Level 1 04/03/2018 4:06pm Height 61 inches 5'1" Weight 171.00 lb shoes off Heart Rate 58 /min BP Systolic 154 mmHg right arm BP Diastolic 66 mmHg right arm BMI (Body Mass Index) 32.3 kg/m2 Ejection Fraction 65-70% 03/07/2018 Echocardiogram 03/07/2018 11:51am Height 61 inches 5'1" Weight 169.25 lb shoes 0ff Heart Rate 92 /min BP Systolic 150 mmHg BP Diastolic 72 mmHg BMI (Body Mass Index) 32.0 kg/m2 Ejection Fraction <70% 12/31/2016 Echocardiogram 01/24/2018 9:14am Height 61 inches 5'1" Heart Rate 80 /min BP Systolic 152 mmHg BP Diastolic 68 mmHg Respiratory Rate 20 /min Body Temperature 97.9 F 12/30/2017 10:02am Height 61 inches 5'1" Weight 172.00 lb Heart Rate 78 /min BP Systolic Sitting 130 mmHg BP Diastolic Sitting 70 mmHg Respiratory Rate 18 /min Pain Level 8 BMI (Body Mass Index) 32.5 kg/m2 11/07/2017 9:51am Height 61 inches 5'1" Weight 171.00 lb Heart Rate 70 /min BP Systolic Sitting 170 mmHg Lue reg cuff BP Diastolic Sitting 76 mmHg Lue reg cuff BP Systolic Recheck 138 mmHg Lue regular cuff BP Diastolic Recheck 78 mmHg Lue regular cuff Respiratory Rate 16 /min O2 % BldC Oximetry 97 % On Ra BMI (Body Mass Index) 32.3 kg/m2 09/14/2017 1:19pm Height 61 inches 5'1" Weight 174.25 lb no shoes Heart Rate 84 /min BP Systolic 138 mmHg L/Arm Reg Cuff BP Diastolic 72 mmHg L/Arm Reg Cuff BMI (Body Mass Index) 32.9 kg/m2 Ejection Fraction >70% Echocardiogram 12/31/2016 09/07/2017 1:35pm Height 61 inches 5'1" Weight 173.12 lb Heart Rate 72 /min BP Systolic 130 mmHg BP Diastolic 80 mmHg Respiratory Rate 16 /min O2 % BldC Oximetry 96 % BMI (Body Mass Index) 32.7 kg/m2 08/15/2017 11:20am Heart Rate 66 /min apical BP Systolic 134 mmHg Ra, reg cuff BP Diastolic 72 mmHg Ra, reg cuff BP Systolic Sitting 136 mmHg LA, reg cuff BP Diastolic Sitting 72 mmHg LA, reg cuff BP Systolic Standing 124 mmHg Ra, reg cuff BP Diastolic Standing 68 mmHg Ra, reg cuff 07/13/2017 2:00pm Height 61 inches 5'1" Heart Rate 76 /min BP Systolic 140 mmHg rA, l cuff BP Diastolic 66 mmHg rA, l cuff BP Systolic Sitting 142 mmHg Ra, l cuff BP Diastolic Sitting 68 mmHg Ra, l cuff BP Systolic Standing 132 mmHg Ra, l cuff BP Diastolic Standing 66 mmHg Ra, l cuff 07/06/2017 11:11am Height 61 inches 5'1" Weight 174.25 lb no shoes Heart Rate 86 /min BP Systolic Sitting 140 mmHg Lue reg cuff BP Diastolic Sitting 84 mmHg Lue reg cuff Respiratory Rate 16 /min O2 % BldC Oximetry 96 % On Ra BMI (Body Mass Index) 32.9 kg/m2 06/22/2017 11:07am Height 61 inches 5'1" Weight 172.75 lb with shoes Heart Rate 82 /min BP Systolic Sitting 146 mmHg LA reg cuff BP Diastolic Sitting 82 mmHg LA reg cuff BMI (Body Mass Index) 32.6 kg/m2 Ejection Fraction >70% echo 12/31/16 04/22/2017 11:13am Height 61 inches 5'1" Weight 171.00 lb Heart Rate 60 /min BP Systolic Sitting 100 mmHg BP Diastolic Sitting 66 mmHg Respiratory Rate 14 /min O2 % BldC Oximetry 95 % BMI (Body Mass Index) 32.3 kg/m2 Neck Circumference in inches 17 03/04/2017 2:22pm Height 61 inches 5'1" Weight 174.00 lb with shoes Heart Rate 72 /min BP Systolic Sitting 110 mmHg Lue lg cuff BP Diastolic Sitting 56 mmHg Lue lg cuff BP Systolic Standing 114 mmHg Lue lg cuff BP Diastolic Standing 60 mmHg Lue lg cuff Respiratory Rate 16 /min BMI (Body Mass Index) 32.9 kg/m2 Ejection Fraction >70% 12/31/16 ECHO 11/30/2016 1:31pm Height 61 inches 5'1" Weight 172.75 lb with shoes Heart Rate 84 /min BP Systolic Sitting 138 mmHg LA lrg cuff BP Diastolic Sitting 64 mmHg LA lrg cuff BP Systolic Standing 123 mmHg la repeat sitting BP Diastolic Standing 62 mmHg la repeat sitting BMI (Body Mass Index) 32.6 kg/m2 Results Test Date Facility Test Result H/L Range Note Laboratory test 09/22/2018 [facility] Magnesium 1.7 mg/dL Low 1.9-2.7 1, [address] [place] [address] [phone] Lipid Panel - [facility] 09/22/2018 [facility] Creatine 59 U/L N 10- [address] Kinase(CK) [place] [address] [phone] Comp Metabolic 09/22/2018 [facility] Sodium 137 mmol/L N 135- [address] [place] [address] [phone] Potassium 4.4 mmol/L N 3.5-5.0 Chloride 102 mmol/L N 101-111 Co2 Carbon Dioxide 28 mmol/L N 22-32 Anion Gap 7 mmol/L N 2-11 Glucose 172 mg/dL High 70-100 Blood Urea Nitrogen 20 mg/dL N 6-24 Creatinine 0.89 mg/dL N 0.51-0.95 BUN/Creatinine Ratio 22.5 High 8-20 Calcium 9.6 mg/dL N 8.6-10.3 Total Protein 7.2 g/dL N 6.4-8.9 Albumin 4.4 g/dL N 3.2-5.2 Globulin 2.8 g/dL N 2-4 Albumin/Globulin Ratio 1.6 N 1-3 Total Bilirubin 0.60 mg/dL N 0.2-1.0 Alkaline Phosphatase 86 U/L N 34-104 Alt 21 U/L N 7-52 Ast 18 U/L N 13-39 Egfr Non- 61.5 >60 Egfr 74.4 >60 4 CBC Auto Diff 09/22/2018 [facility] White Blood 5.9 10^3/uL N 3.5-10.[address] [place] [address] [phone] Red Blood Count 5.06 10^6/uL High 3.70-4.87 Hemoglobin 13.8 g/dL N 12.0-16.0 Hematocrit 41 % N 33-41 Mean Corpuscular Volume 82 fL N 80-97 Mean Corpuscular Hemoglobin 27 pg N 27-31 Mean Corpuscular HGB Conc 33 g/dL N 31-36 Red Cell Distribution Width 15 % N 10.5-15 Platelet Count 186 10^3/uL N 150-450 Mean Platelet Volume 11.6 fL High 7.4-10.4 Abs Neutrophils 3.4 10^3/uL N 1.5-7.7 Abs Lymphocytes 1.5 10^3/uL N 1.0-4.8 Abs Monocytes 0.7 10^3/uL N 0-0.8 Abs Eosinophils 0.2 10^3/uL N 0-0.6 Abs Basophils 0 10^3/uL N 0-0.2 Abs Nucleated RBC 0 10^3/uL Granulocyte % 58.1 % Lymphocyte % 25.9 % Monocyte % 11.6 % Eosinophil % 3.7 % Basophil % 0.7 % Nucleated Red Blood Cells % 0.2 Lipid Profile 09/22/2018 [facility] Triglycerides 160 mg/dL 5 (Trig/Chol/HDL) [address] [place] [address] [phone] Cholesterol 138 mg/dL 6 HDL Cholesterol 41.1 mg/dL 7 LDL Cholesterol 65 mg/dL 8 CBC Auto Diff 03/09/2018 [facility] White Blood 6.6 10^3/uL N 3.5-10.[address] [place] [address] [phone] Red Blood Count 4.89 10^6/uL N 4.00-5.40 Hemoglobin 13.3 g/dL N 12.0-16.0 Hematocrit 40 % N 35-47 Mean Corpuscular Volume 82 fL N 80-97 Mean Corpuscular Hemoglobin 27 pg N 27-31 Mean Corpuscular HGB Conc 33 g/dL N 31-36 Red Cell Distribution Width 14 % N 10.5-15 Platelet Count 198 10^3/uL N 150-450 Mean Platelet Volume 11.5 um3 High 7.4-10.4 Abs Neutrophils 4.0 10^3/uL N 1.5-7.7 Abs Lymphocytes 1.5 10^3/uL N 1.0-4.8 Abs Monocytes 0.8 10^3/uL N 0-0.8 Abs Eosinophils 0.2 10^3/uL N 0-0.6 Abs Basophils 0.1 10^3/uL N 0-0.2 Abs Nucleated RBC 0 10^3/uL Granulocyte % 61.5 % N 38-83 Lymphocyte % 22.9 % Low 25-47 Monocyte % 11.5 % High 0-7 Eosinophil % 3.0 % N 0-6 Basophil % 1.1 % N 0-2 Nucleated Red Blood Cells % 0 Lipid Panel - 03/09/2018 [facility] Creatine 62 U/L N 10-223 [address] Kinase(CK) [place] [address] [phone] Comp Metabolic 03/09/2018 [facility] Sodium 138 N 135-[address] mmol/[place] [address] [phone] Potassium 4.2 mmol/L N 3.5-5.0 Chloride 102 mmol/L N 101-111 Co2 Carbon Dioxide 27 mmol/L N 22-32 Anion Gap 9 mmol/L N 2-11 Glucose 71 mg/dL N 70-100 Blood Urea Nitrogen 18 mg/dL N 6-24 Creatinine 0.86 mg/dL N 0.51-0.95 BUN/Creatinine Ratio 20.9 High 8-20 Calcium 9.9 mg/dL N 8.6-10.3 Total Protein 7.1 g/dL N 6.4-8.9 Albumin 4.5 g/dL N 3.2-5.2 Globulin 2.6 g/dL N 2-4 Albumin/Globulin Ratio 1.7 N 1-3 Total Bilirubin 0.70 mg/dL N 0.2-1.0 Alkaline Phosphatase 80 U/L N 34-104 Alt 16 U/L N 7-52 Ast 16 U/L N 13-39 Egfr Non- 64.0 >60 Egfr 77.4 >60 10 Lipid Profile 03/09/2018 [facility] Triglycerides 230 mg/dL 11 (Trig/Chol/HDL) [address] [place] [address] [phone] Cholesterol 138 mg/dL 12 HDL Cholesterol 37.7 mg/dL 13 LDL Cholesterol 54 mg/dL 14 Liver Function 03/09/2018 [facility] Total Protein 7.2 g/dL N 6.4-8.[address] [place] [address] [phone] Albumin 4.5 g/dL N 3.2-5.2 Globulin 2.7 g/dL N 2-4 Albumin/Globulin Ratio 1.7 N 1-3 Total Bilirubin 0.70 mg/dL N 0.2-1.0 Direct Bilirubin 0.10 mg/dL N 0.03-0.18 Indirect Bilirubin 0.6 mg/dL N 0.3-1.0 Alkaline Phosphatase 80 U/L N 34-104 Alt 17 U/L N 7-52 Ast 16 U/L N 13-39 Laboratory test 03/09/2018 [facility] Vitamin B12 800 pg/mL N 180-914 [address] [place] [address] [phone] Urine 03/09/2018 [facility] Ur Microalbumin < 15.[address] (mg/L) [place] [address] [phone] Urine Creatinine 51.52 mg/dL Urine Microalbumin/Creatinine TNP <31 16 1 [id number] 2 [id number] 3 [id number] 4 Because ethnic data is not always readily available, this report includes an eGFR for both -Americans and non- Americans. The National Kidney Disease Education Program (NKDEP) does not endorse the use of the MDRD equation for patients that are not between the ages of 18 and 70, are , have extremes of body size, muscle mass, or nutritional status, or are non- or non-. According to the National Kidney Foundation, irrespective of diagnosis, the stage of the disease is based on the level of kidney function: Stage Description GFR(mL/min/1.73 m(2)) 1 Kidney damage with normal or decreased GFR 90 2 Kidney damage with mild decrease in GFR 60-89 3 Moderate decrease in GFR 30-59 4 Severe decrease in GFR 15-29 5 Kidney failure <15 (or dialysis) 5 Desirable: <150 Borderline High: 150-199 High: 200-499 Very High: >500 6 Desirable: <200 Borderline High: 200-239 High: >239 7 Low: <40 Desirable: 40-60 High: >60 8 Desirable: <100 Near Optimal: 100-129 Borderline High: 130-159 High: 160-189 Very High: >189 9 FASTING Copy Result to: LANCE POWERS ([id number]) 10 Because ethnic data is not always readily available, this report includes an eGFR for both -Americans and non- Americans. The National Kidney Disease Education Program (NKDEP) does not endorse the use of the MDRD equation for patients that are not between the ages of 18 and 70, are , have extremes of body size, muscle mass, or nutritional status, or are non- or non-. According to the National Kidney Foundation, irrespective of diagnosis, the stage of the disease is based on the level of kidney function: Stage Description GFR(mL/min/1.73 m(2)) 1 Kidney damage with normal or decreased GFR 90 2 Kidney damage with mild decrease in GFR 60-89 3 Moderate decrease in GFR 30-59 4 Severe decrease in GFR 15-29 5 Kidney failure <15 (or dialysis) 11 Desirable: <150 Borderline High: 150-199 High: 200-499 Very High: >500 12 Desirable: <200 Borderline High: 200-239 High: >239 13 Low: <40 Desirable: 40-60 High: >60 14 Desirable: <100 Near Optimal: 100-129 Borderline High: 130-159 High: 160-189 Very High: >189 15 Normal Range 180 to 914 Indeterminate Range 145 to 180 Deficient Range <145 16 Unable to calculate due to low microalbumin Procedures Date Code Description Status 09/01/2018 15075 EKG Tracing & Interpretation Completed 03/31/2018 39638 Treadmill Interp/Report Only Completed 03/31/2018 56237 Stress Test Supervsn W/Out I/R Completed 03/29/2018 64299 Holter Monitor Review (24 hr)dr review & interp only Completed 03/23/2018 16803 ECG Monitor/Recording W/Visual Superimposition Scanning Completed 03/17/2018 44090 ECHO Transthoracic, Real-Time 2D With Doppler And Color Completed Flow 03/17/2018 51003 ECHO Transthoracic, Real-Time 2D With Doppler And Color Completed Flow 03/07/2018 72514 EKG Tracing & Interpretation Completed 09/14/2017 39289 EKG Tracing & Interpretation Completed 06/22/2017 40855 EKG Tracing & Interpretation Completed 06/07/2017 79094 Polysomnography Sleep Staging 4+ Parameters Completed 01/31/2017 70762 Stress ECHO Interpretation/Report [facility] Completed 01/31/2017 35668 Treadmill Interp/Report Only Completed 01/31/2017 92459 Stress Test Supervsn W/Out I/R Completed 12/31/2016 76618 ECHO Transthoracic, Real-Time 2D With Doppler And Color Completed Flow 12/21/2016 11601 Holter Monitor Review (24 hr)dr review & interp only Completed 12/20/2016 92774 ECG Monitor/Recording W/Visual Superimposition Scanning Completed 11/30/2016 61228 EKG Tracing & Interpretation Completed 11/05/2003 96359 Color Doppler Completed 11/05/2003 06797 Pulse Doppler & Continuous Wave Completed 11/05/2003 79748 Echocardiogram Completed Encounters Type Date Location Provider Dx Diagnosis Office Visit 09/01/2018 [facility] Sukhi Goldstein I10 Essential ( primary) 2:00p Clemencia Ribeiro hypertension E78.00 Pure hypercholesterolemia, unspecified I25.10 Athscl heart disease of [place] coronary artery w/o ang pctrs R00.2 Palpitations R07.9 Chest pain, unspecified I35.0 Nonrheumatic aortic (valve) stenosis Office Visit 06/07/2018 8:30a [facility] Lee Ann S. I10 Essential ( primary) Foster, N.P. hypertension I25.10 Athscl heart disease of [place] coronary artery w/o ang pctrs E78.00 Pure hypercholesterolemia, unspecified I35.0 Nonrheumatic aortic (valve) stenosis Office Visit 05/18/2018 11:00a [facility] Nurse Visit I10 Essential (primary) cc hypertension Office Visit 05/01/2018 3:00p [facility] Lee Ann S. I25.10 Athscl heart Foster, N.P. disease of [place] coronary artery w/o ang pctrs E78.00 Pure hypercholesterolemia, unspecified R00.2 Palpitations I35.0 Nonrheumatic aortic (valve) stenosis Office Visit 04/27/2018 Orthopedic Snow Menjivar, M17.12 Unilateral primary 9:30a Services Of osteoarthritis, left C.M.A. knee Office Visit 04/03/2018 [place] Lee Ann S. R00.2 Palpitations 3:30p Cardiology Foster, N.P. I35.0 Nonrheumatic aortic (valve) stenosis I10 Essential (primary) hypertension I25.10 Athscl heart disease of [place] coronary artery w/o ang pctrs Office Visit 03/07/2018 11:20a [facility] Sukhi Glodstein I10 Essential (primary) Clemencia Ribeiro hypertension E78.00 Pure hypercholesterolemia, unspecified I25.10 Athscl heart disease of [place] coronary artery w/o ang pctrs I35.0 Nonrheumatic aortic (valve) stenosis R00.2 Palpitations R07.9 Chest pain, unspecified Office 02/06/2018 [facility] Dermatology Herrera Pratt, D69.2 Other Visit 9:20a nonthrombocytopenic purpura Office 01/24/2018 Orthopedic Snow Menjivar, M17.12 Unilateral primary Visit 9:00a Services Of osteoarthritis, left C.M.A. knee M25.572 Pain in left ankle and joints of left foot Office Visit 12/30/2017 Orthopedic Snow Menjivar, M17.12 Unilateral primary 10:00a Services Of osteoarthritis, left C.M.A. knee M25.462 Effusion, left knee Office Visit 11/07/2017 [facility] And Yvette G47.33 Obstructive sleep 10:00a Sleep Services Of JOEL Lemon RN, apnea (adult) [facility] ALYSSAKADEEM (pediatric) I10 Essential (primary) hypertension Office Visit 09/14/2017 1:30p [facility] Sukhi Goldstein G47.33 Obstructive sleep Clemencia Ribeiro apnea (adult) (pediatric) I10 Essential (primary) hypertension R00.2 Palpitations E78.00 Pure hypercholesterolemia, unspecified I35.0 Nonrheumatic aortic (valve) stenosis Office Visit 09/07/2017 [facility] G47.33 Obstructive sleep 1:30p Sleep Services Of JOEL Lemon RN, apnea (adult) [facility] ALYSSAKADEEM (pediatric) Office Visit 08/15/2017 [facility] Nurse Visit cc I10 Essential 11:00a (primary) hypertension Office Visit 07/13/2017 [facility] Nurse Visit cc I10 Essential 2:00p (primary) hypertension Office Visit 07/06/2017 [facility] Dermatology Herrera Pratt, L82.1 Other seborrheic 2:10p keratosis D18.01 Hemangioma of skin and subcutaneous tissue B35.3 Tinea pedis L21.8 Other seborrheic dermatitis Office Visit 07/06/2017 [facility] G47.33 Obstructive sleep 11:15a Sleep Services Of JOEL Lemon RN, apnea (adult) [facility] ALYSSAKADE[place] (pediatric) Office Visit 06/22/2017 [facility] Sukhi Goldstein G47.33 Obstructive sleep 11:00a Clemencia Ribeiro apnea (adult) (pediatric) G47.9 Sleep disorder, unspecified R00.2 Palpitations I35.0 Nonrheumatic aortic (valve) stenosis R06.00 Dyspnea, unspecified I10 Essential (primary) hypertension I25.10 Athscl heart disease of [place] coronary artery w/o ang pctrs Office Visit 04/22/2017 11:00a [facility] G47.9 Sleep disorder, Sleep Services Of MD [place] unspecified [facility] F51.5 Nightmare disorder Office Visit 03/04/2017 2:30p [facility] Of IRENE Warren R00.2 Palpitations [facility] I35.0 Nonrheumatic aortic (valve) stenosis R06.00 Dyspnea, unspecified R07.9 Chest pain, unspecified I10 Essential (primary) hypertension R94.39 Abnormal result of other cardiovascular function study Office Visit 01/31/2017 4:23p [facility] Sukhi Goldstein R07.9 Chest pain, Clemencia Ribeiro unspecified R06.00 Dyspnea, unspecified Office Visit 11/30/2016 [place] Sukhi Goldstein R94.31 Abnormal 2:00p Cardiology Clemencia Ribeiro electrocardiogram [ECG] [EKG] R07.89 Other chest pain R00.2 Palpitations I73.9 Peripheral vascular disease, unspecified R07.9 Chest pain, unspecified 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 at [facility]11/08/2018 - Yvette Lemon DNP, RN, 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G47.33 Obstructive sleep apnea (adult) (pediatric)Comments:On CPAP AHI 2.8/hour, normalFollow up:1 yearRecommendations:Continue PAP device, Benefitting and compliant with treatment. Put airline letter with your machine,okay to take it on the plane. Cleaning Wipe off mask daily (baby wipe-no scent, or warm water) Clean mask, tubing, filter, and water chamber weekly in mild no scent dish soap and water. Hang to dry. If you have any sleepiness while driving you MUST avoid operating a vehicle or machinery. If you have difficulty with your equipment, or need to replace your mask or hoses, please contact your homecare agency. A weight change of 20 pounds or more may have an effect on your equipment; if you are experiencing problems please call for an appointment. If you have any further questions, please call the [facility] at [phone].
--- NOTE | 2018-11-26 12:46 | UC ---
Hand/Wrist HPI - HPI Summary HPI Summary: 78 y/o female presents to the urgent care accompany by son c/o left wrist pain and swelling since 11/23/2018. Pt reports she was doing heavy lifting at home and then symptoms started. 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 She is allergic to many pain medications and prednisone PO. She states she used to needling for many years and lately she has noticed some nodules are developing in her fingers. Pain w/ movement in the ventral side her left wrist is 9/10 w/ o any radiation. At rest is 2/10. She took a Tylenol PO 2 tabs to alleviate symptoms about 2 hrs ago. She also c/o of mild sore throat for the past 2 days. Pt denies fever, Hx of RA, gout, numbness or tingling sensation over the RT arm, hand or finger, SOB, dizziness, chest pain, abdominal pain, visual changes , N/V/D. - History Of Current Complaint Chief Complaint: UCUpperExtremity Stated Complaint: WRIST PAIN Time Seen by Provider: 11/26/18 12:44 Hx Obtained From: Patient ?: No - Menopausal Onset/Duration: Gradual Onset, Lasting Days - 4 days, Still Present, Worse Since - yesterday Severity Initially: Mild Severity Currently: Severe Pain Intensity: 9 Pain Scale Used: 0-10 Numeric Character Of Pain: Sharp Aggravating Factor(s): Movement, Lifting Alleviating Factor(s): Rest, Ice, OTC Meds - tylenol PO. last dose taken was around 1000AM Associated Signs And Symptoms: Positive: Swelling - mild, Weakness, Numbness/ Tingling. Negative: Redness Related History: Dominant Hand Right - Allergies/Home Medications Allergies/Adverse Reactions: Allergies Allergy/AdvReac Type Severity Reaction Status Date / Time clindamycin Allergy Rash And Verified 11/26/18 12:07 Itching Iodinated Contrast- Oral and Allergy Shortness Verified 11/26/18 12:07 IV Dye of Breath NSAIDS (Non-Steroidal Allergy Unknown Verified 11/26/18 12:07 Anti-Inflamma Reaction Details penicillin G Allergy Unknown Verified 11/26/18 12:07 Reaction Details Penicillins Allergy Unknown Verified 11/26/18 12:07 Reaction Details red (food color) Allergy Rash And Verified 11/26/18 12:07 Itching red dye Allergy Rash And Verified 11/26/18 12:07 Itching Opioids - Morphine Analogues AdvReac GI Upset Verified 11/26/18 12:07 Opioids-Meperidine and AdvReac GI Upset Verified 11/26/18 12:07 Related Opioids-Methadone and Related AdvReac GI Upset Verified 11/26/18 12:07 ivp dye Allergy Severe Shortness Uncoded 11/26/18 12:07 of Breath green dye Allergy Rash And Uncoded 11/26/18 12:07 Itching PMH/Surg Hx/FS Hx/Imm Hx Previously Healthy: Yes Endocrine History: Diabetes, Dyslipidemia Cardiovascular History: Cardiac Disease Psychological History: Depression - Surgical History Surgical History: Yes Surgery Procedure, Year, and Place: Tuberculosis, right ankle tumors, begnin breast tumors removed, tonsillectomy, gallbladder. Bilateral cataracts removed. - Family History Known Family History: Positive: Cardiac Disease, Hypertension - Social History Occupation: Retired Lives: With Family Alcohol Use: None Substance Use Type: None Smoking Status (MU): Former Smoker Type: Cigarettes Amount Used/How Often: 4-5 day Have You Smoked in the Last Year: No Review of Systems All Other Systems Reviewed And Are Negative: Yes Constitutional: Positive: Negative Skin: Positive: Other - left wrist swelling Eyes: Positive: Negative ENT: Positive: Sore Throat Respiratory: Positive: Negative Cardiovascular: Positive: Negative Gastrointestinal: Positive: Negative Genitourinary: Positive: Negative Motor: Positive: Negative Neurovascular: Positive: Negative Musculoskeletal: Positive: Decreased ROM - left wrist, Other: - left wrist pain s/p heavy lifting Neurological: Positive: Negative Psychological: Positive: Negative Is Patient Immunocompromised?: No Physical Exam - Summary Physical Exam Summary: Vital Signs Reviewed: Yes General: Well-Appearing, No Pain Distress, Well-Nourished old female w/o any apparent pain or respiratory distress Eyes: Positive: Conjunctiva Clear - PERRLA, EOMI ENT: Positive: Normal ENT inspection, Hearing grossly normal, Pharynx w/ mild erythema, no exudate or B/L tonsillar enlargement, TMs normal, Uvula midline Neck: Positive: Supple, Nontender, No Lymphadenopathy Respiratory: Positive: Chest non-tender, Lungs clear, Normal breath sounds, No respiratory distress Cardiovascular: Positive: RRR, No Murmur, Pulses Normal, Brisk Capillary Refill Abdomen Description: Positive: Nontender, No Organomegaly, Soft. Negative: CVA Tenderness (R), CVA Tenderness (L) Bowel Sounds: Positive: Present Musculoskeletal: Positive: Strength Intact, Other: Neurological Exam: Normal Musculoskeletal: Positive: Wrist: the R wrist is without obvious asymmetry or deformity when compared to the L wrist. No surface trauma, open wounds, all finger w/ positive heberden nodule on the nuckles. positive soft tissue swelling on the volar side of the left wrist w/ swelling and no obvious deformity. No overlying erythema or warmth. No bony crepitus. Point tenderness over the thenar eminence and ventral side of wrist. No scaphoid fullness or tenderness to direct palpation or axial load. Decreased ROM due to pain. Motor/sensory function of ulnar, radial, median nerves intact. Ulnar and radial pulses intact. Skin Exam: Normal Triage Information Reviewed: Yes Vital Signs: Initial Vital Signs Temp 97.8 F 11/26/18 11:35 Pulse 81 11/26/18 11:35 Resp 17 11/26/18 11:35 BP 147/63 11/26/18 11:35 Pulse Ox 98 11/26/18 11:35 Hand/Wrist Course/Dx - Course Course Of Treatment: 78 y/o female presents to the urgent care accompany by son c/o left wrist pain and swelling since 11/23/2018. Pt reports she was doing heavy lifting at home and then symptoms started. She has Hx of DM type II and possible osteoporis, Extra pulmonary TB. 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 She is allergic to many pain medications and prednisone PO. She states she used to needling for many years and lately she has noticed some nodules are developing in her fingers. Pain w/ movement in the ventral side her left wrist is 9/10 w/ o any radiation. At rest is 2/10. She took a Tylenol PO 2 tabs to alleviate symptoms about 2 hrs ago. She also c/o of mild sore throat for the past 2 days. Pt denies fever, Hx of RA, gout, numbness or tingling sensation over the RT arm , hand or finger, SOB, dizziness, chest pain, abdominal pain, visual changes, N/ V/D. Hx obtained. Rapid strep: negative. Left wrist X-ray ordered, Impression: Bone density appears decreased throughout. Negative for fracture or malalignment. Advanced osteoarthritis at the trapezium first metacarpal and scaphoid trapezium joints. Soft tissue swelling most marked over the volar aspect as per radiologist. Pt probably w/ exacerbation of her osteoarthritis. Pt allergic to multiple pain medication. I discussed Pt's symptoms w/ DR Barone and she recommended Thumb spica splint, Lidocaine patch and Medrol dose josiah. However, Pt declined Medrol dose josiah. Pt's left wrist immobilized w/ Thumb spica by nurse, neurovascular intact after splint placement checked by me. Pt Rx Lidocaine patch and given a referral w/ Orthopedic Dr Bolanos or f/u w / her PCP DR wills for further management of her inflamatory polyarthritis. Advised to continue taking Tylenol PO to alleviate symptoms. Pt's BP is elevated today advised to decrease salt in diet, monitor BP and f/u with PCP for further management. D/C instructions explained. Son and PT understood and agreed w/ plan of care. Pt left the clinic hemodynamically stable, AxOX3 - Differential Dx/Diagnosis Differential Diagnosis/HQI/PQRI: Bursitis, Cellulitis, Contusion, Fracture, Gout , Sprain, Tendonitis, Tenosynovitis, Other - RA, arthritis Provider Diagnosis: Wrist pain, left, Osteoarthritis, Elevated BP without diagnosis of hypertension , Pharyngitis Discharge - Sign-Out/Discharge Documenting (check all that apply): Patient Departure - d/c home All imaging exams completed and their final reports reviewed: Yes - Discharge Plan Condition: Stable Disposition: HOME Prescriptions: Lidocaine PATCH 5%* [Lidoderm 5% Patch*] 1 patch TRANSDERM DAILY #30 patch Patient Education Materials: Osteoarthritis (ED) Referrals: Lance Powers MD [Primary Care Provider] - 2 Days Omer Bolanos MD [Medical Doctor] - 2 Days Additional Instructions: 1-Please continue taking Tylenol PO q6hrs prn as directed to alleviate pain and swelling. increase fluid intake, rest and avoid strenuous exercise. 2-Please apply ice, keep your left wrist immobilized with the splint. Avoid heavy lifting, or repetitive movement w/ your wrist. Avoid 3- Please f/u w/ your PCP DR Wills or Orthopedic Dr Bolanos in 2-3 days for further management in your Inflammatory polyarthritis. 4- Your BP is elevated today. please decrease salt in your diet, monitor BP and if it continues to be elevated please f/u with your PCP for further management. 5- Strep test was negative - Billing Disposition and Condition Condition: STABLE Disposition: Home
[2018-11-26 13:59] VITALS: BP 144/53
== END 2018-11-26 14:17 | disposition home or self-care (01) ==
LOC: UCEAST 10:51
DX: M25.532 Pain in left wrist (principal); M19.032 Primary osteoarthritis, left wrist; R03.0 Elevated blood-pressure reading, without diagnosis of hypertension; J02.9 Acute pharyngitis, unspecified; E11.9 Type 2 diabetes mellitus without complications; Z88.5 Allergy status to narcotic agent; Z88.0 Allergy status to penicillin; Z88.6 Allergy status to analgesic agent; Z88.1 Allergy status to other antibiotic agents; Z91.041 Radiographic dye allergy status; Z87.891 Personal history of nicotine dependence
CPT/HCPCS: 87651; 99213; G0463

== ENCOUNTER 2020-07-09 11:11 | Inpatient (IN) ==
[2020-07-09] MEDS ORDERED: NS 0.9% 1000 ml BAG 1,000 ML IV ONE ×2 (12:01→15:00)
[2020-07-09 13:08] LABS: ABS Basophils 0.1 10^3/ul (0-0.2); ABS Eosinophils 0.2 10^3/ul (0-0.6); ABS Lymphocytes 1.1 10^3/ul (1.0-4.8); ABS Monocytes 0.7 10^3/ul (0-0.8); ABS Neutrophils 4.5 10^3/ul (1.5-7.7); Eosinophil % 2.6 %; Hematocrit 46 % (35-47); Hemoglobin 15.6 g/dL (12.0-16.0); Lymphocyte % 16.4 %; Mean Corpuscular HGB Conc 34 g/dL (31-36); Mean Corpuscular Hemoglobin 26 pg (27-31); Mean Corpuscular Volume 76 fL (80-97); Mean Platelet Volume 10.2 fL (7.4-10.4); Platelet Count 203 10^3/uL (150-450); Red Blood Count 6.07 10^6 /uL (3.70-4.87); Red Cell Distribution Width 16 % (10-15); White Blood Count 6.5 10^3/uL (3.5-10.8)
[2020-07-09 13:28] LABS: Troponin I 0.01 ng/mL (<0.03)
[2020-07-09 13:29] LABS: Albumin 4.4 g/dL (3.2-5.2); Albumin/Globulin Ratio 1.2 (1-3); BUN/Creatinine Ratio 21.3 (8-20); Calcium 9.8 mg/dL (8.6-10.3); EGFR African American 69.5 (>60); EGFR Non-African American 57.4 (>60); Globulin 3.8 g/dL (2-4); Magnesium 1.5 mg/dL (1.9-2.7); Total Bilirubin 0.7 mg/dL (0.2-1.0); Total Protein 8.2 g/dL (6.4-8.9)
[2020-07-09 13:59] LABS: TSH Ultra Thyroid Stim Horm 1.79 mcIU/mL (0.34-5.60)
[2020-07-09] MEDS ORDERED: Magnesium Sulfate IV 3 GM in NS 0.9% 100 ml BAG 100 ML IVPB ONE (14:58)
[2020-07-09 15:05] LABS: Urine Appearance Cloudy; Urine Bilirubin Negative (Negative); Urine Blood Negative (Negative); Urine Color Yellow; Urine Glucose 2+(150 mg/dL) (Negative); Urine Ketones Negative (Negative); Urine Nitrite Negative (Negative); Urine Protein Negative (Negative); Urine Specific Gravity 1.011 (1.010-1.030); Urine Urobilinogen Negative (Negative)
[2020-07-09] MEDS ORDERED: Al Hydrox/Mg Hydrox/Simet LIQ 30 ML UDC PO PRN (15:45)
[2020-07-09] MEDS ORDERED: Dextrose 50% Syringe 50 ml 25 GM/50 ML SYRINGE IV PUSH PRN (15:50)
[2020-07-09 16:02] LABS: C Reactive Protein 3.81 mg/L (<8.01)
[2020-07-09] MEDS: Insulin GLARGINE 100 un/ml 10 ml VIAL SUBCUT SCH ×2 (20:56→21:01)
[2020-07-09] MEDS ORDERED: Heparin DRIP 25,000 UNITS BAG 25,000 UNITS/500 ML BAG IV SCH (21:30)
[2020-07-09 22:00] LABS: Hematocrit 47 % (35-47); Hemoglobin 16.1 g/dL (12.0-16.0); Mean Corpuscular HGB Conc 34 g/dL (31-36); Mean Corpuscular Hemoglobin 26 pg (27-31); Mean Corpuscular Volume 76 fL (80-97); Mean Platelet Volume 10.2 fL (7.4-10.4); Platelet Count 206 10^3/uL (150-450); Red Blood Count 6.24 10^6 /uL (3.70-4.87); Red Cell Distribution Width 16 % (10-15); White Blood Count 5.6 10^3/uL (3.5-10.8)
[2020-07-09] MEDS ORDERED: Heparin 5000 UNITS/ML 1 mL VIAL SUBCUT SCH (22:00)
[2020-07-09 22:05] LABS: ABS Basophils 0.1 10^3/ul (0-0.2); ABS Eosinophils 0.2 10^3/ul (0-0.6); ABS Lymphocytes 1.1 10^3/ul (1.0-4.8); ABS Monocytes 0.7 10^3/ul (0-0.8); ABS Neutrophils 3.6 10^3/ul (1.5-7.7); Eosinophil % 2.8 %; Lymphocyte % 19.3 %; Nucleated Red Blood Cells % 0.1
[2020-07-09 22:10] LABS: EGFR African American 78.1 (>60); EGFR Non-African American 64.5 (>60)
[2020-07-10 05:12] LABS: Hematocrit 44 % (35-47); Hemoglobin 14.8 g/dL (12.0-16.0); Mean Corpuscular HGB Conc 34 g/dL (31-36); Mean Corpuscular Hemoglobin 26 pg (27-31); Mean Corpuscular Volume 76 fL (80-97); Mean Platelet Volume 10.2 fL (7.4-10.4); Platelet Count 203 10^3/uL (150-450); Red Blood Count 5.74 10^6 /uL (3.70-4.87); Red Cell Distribution Width 16 % (10-15); White Blood Count 5.5 10^3/uL (3.5-10.8)
[2020-07-10 05:28] LABS: EGFR African American 73.1 (>60); EGFR Non-African American 60.4 (>60); Magnesium 1.9 mg/dL (1.9-2.7); Potassium 3.8 mmol/L (3.5-5.0)
[2020-07-10 06:17] LABS: ABS Basophils 0.1 10^3/ul (0-0.2); ABS Eosinophils 0.2 10^3/ul (0-0.6); ABS Lymphocytes 1.2 10^3/ul (1.0-4.8); ABS Monocytes 0.9 10^3/ul (0-0.8); ABS Neutrophils 3.3 10^3/ul (1.5-7.7); Eosinophil % 4.3 %; Lymphocyte % 20.5 %; Nucleated Red Blood Cells % 0.2
[2020-07-10] MEDS: Nitroglycerin 0.1 mg/hr PATCH (2.5 mg) TRANSDERM SCH (08:46)
[2020-07-10] MEDS: LIFITEGRAST BOTH EYES SCH (08:47)
[2020-07-10] MEDS: Insulin GLARGINE 100 un/ml 10 ml VIAL SUBCUT SCH (10:23)
[2020-07-10 15:18] LABS: HDL Cholesterol 29.3 mg/dL
[2020-07-10] MEDS ORDERED: [UNRECOGNIZED DRUG - OTHER] PATCH OFF SCH (21:00)
[2020-07-11] MEDS: Insulin GLARGINE 100 un/ml 10 ml VIAL SUBCUT SCH (08:33)
[2020-07-11] MEDS: Nitroglycerin 0.1 mg/hr PATCH (2.5 mg) TRANSDERM SCH (10:04)
[2020-07-11] MEDS: LIFITEGRAST BOTH EYES SCH (10:06)
[2020-07-11 12:20] VITALS: BP 127/57
== END 2020-07-11 14:45 | DRG 66 ==
LOC: MEDTELE 11:11 → ED 11:11 → MEDTELE 19:21
PROVIDERS: ADMIT Internal Medicine; ATTEND Internal Medicine

== ENCOUNTER 2020-07-11 08:12 | Inpatient (IN) ==
[2020-07-11] MEDS ORDERED: Al Hydrox/Mg Hydrox/Simet LIQ 30 ML UDC PO PRN (12:10)
[2020-07-11] MEDS ORDERED: Dextrose 50% Syringe 50 ml 25 GM/50 ML SYRINGE IV PUSH PRN (12:25)
[2020-07-11] MEDS: Nitro Patch/OINT Remove PATCH PATCH OFF SCH (21:32)
[2020-07-12 07:26] LABS: Albumin 3.9 g/dL (3.2-5.2); Albumin/Globulin Ratio 1.1 (1-3); BUN/Creatinine Ratio 22.8 (8-20); Calcium 9.6 mg/dL (8.6-10.3); EGFR African American 71.3 (>60); EGFR Non-African American 58.9 (>60); Globulin 3.4 g/dL (2-4); Potassium 3.9 mmol/L (3.5-5.0); Total Bilirubin 0.7 mg/dL (0.2-1.0); Total Protein 7.3 g/dL (6.4-8.9)
[2020-07-12] MEDS ORDERED: Insulin GLARGINE 100 un/ml 10 ml VIAL SUBCUT SCH (07:30)
[2020-07-12] MEDS: Nitroglycerin 0.1 mg/hr PATCH (2.5 mg) TRANSDERM SCH (09:24)
[2020-07-12] MEDS: Lifitegrast (NF) 1 BTL BOTH EYES SCH (09:35)
[2020-07-12] MEDS ORDERED: Insulin GLARGINE 100 un/ml 10 ml VIAL SUBCUT ONE (09:57)
[2020-07-12 12:07] LABS: ABS Basophils 0.1 10^3/ul (0-0.2); ABS Eosinophils 0.2 10^3/ul (0-0.6); ABS Monocytes 0.7 10^3/ul (0-0.8); ABS Neutrophils 3.7 10^3/ul (1.5-7.7); Eosinophil % 4.3 %; Hematocrit 46 % (35-47); Hemoglobin 15.2 g/dL (12.0-16.0); Lymphocyte % 17.1 %; Mean Corpuscular HGB Conc 33 g/dL (31-36); Mean Corpuscular Hemoglobin 26 pg (27-31); Mean Corpuscular Volume 77 fL (80-97); Mean Platelet Volume 10.6 fL (7.4-10.4); Nucleated Red Blood Cells % 0.1; Platelet Count 223 10^3/uL (150-450); Red Blood Count 5.92 10^6 /uL (3.70-4.87); Red Cell Distribution Width 16 % (10-15); White Blood Count 5.8 10^3/uL (3.5-10.8)
[2020-07-12] MEDS: Nitro Patch/OINT Remove PATCH PATCH OFF SCH (20:42)
[2020-07-13] MEDS ORDERED: Insulin GLARGINE 100 un/ml 10 ml VIAL SUBCUT SCH (07:30)
[2020-07-13] MEDS: Lifitegrast (NF) 1 BTL BOTH EYES SCH (08:48)
[2020-07-13] MEDS: Nitroglycerin 0.1 mg/hr PATCH (2.5 mg) TRANSDERM SCH (08:51)
[2020-07-13] MEDS ORDERED: Insulin GLARGINE 100 un/ml 10 ml VIAL SUBCUT ONE (09:03)
[2020-07-13] MEDS: Dextran 70/Hypromellose Tears Eye Drops 15 ml BTL (for Artificials Tears) BOTH EYES SCH ×2 (12:45→21:01)
[2020-07-13] MEDS: Nitro Patch/OINT Remove PATCH PATCH OFF SCH (20:48)
[2020-07-14] MEDS: Insulin GLARGINE 100 un/ml 10 ml VIAL SUBCUT SCH (08:07)
[2020-07-14] MEDS: Dextran 70/Hypromellose Tears Eye Drops 15 ml BTL (for Artificials Tears) BOTH EYES SCH ×2 (09:11→20:14)
[2020-07-14] MEDS: Lifitegrast (NF) 1 BTL BOTH EYES SCH (09:12)
[2020-07-14] MEDS: Nitroglycerin 0.1 mg/hr PATCH (2.5 mg) TRANSDERM SCH (09:12)
[2020-07-14 10:17] LABS: ABS Basophils 0.1 10^3/ul (0-0.2); ABS Eosinophils 0.2 10^3/ul (0-0.6); ABS Lymphocytes 1.3 10^3/ul (1.0-4.8); ABS Monocytes 0.9 10^3/ul (0-0.8); ABS Neutrophils 3.8 10^3/ul (1.5-7.7); Eosinophil % 3.2 %; Hematocrit 43 % (35-47); Hemoglobin 14.6 g/dL (12.0-16.0); Lymphocyte % 20.1 %; Mean Corpuscular HGB Conc 34 g/dL (31-36); Mean Corpuscular Hemoglobin 26 pg (27-31); Mean Corpuscular Volume 76 fL (80-97); Mean Platelet Volume 9.9 fL (7.4-10.4); Nucleated Red Blood Cells % 0.1; Platelet Count 196 10^3/uL (150-450); Red Blood Count 5.66 10^6 /uL (3.70-4.87); Red Cell Distribution Width 16 % (10-15); White Blood Count 6.2 10^3/uL (3.5-10.8)
[2020-07-14] MEDS: Nitro Patch/OINT Remove PATCH PATCH OFF SCH (20:19)
[2020-07-15] MEDS: Insulin GLARGINE 100 un/ml 10 ml VIAL SUBCUT SCH (08:45)
[2020-07-15] MEDS: Nitroglycerin 0.1 mg/hr PATCH (2.5 mg) TRANSDERM SCH (08:54)
[2020-07-15] MEDS: Lifitegrast (NF) 1 BTL BOTH EYES SCH (10:58)
[2020-07-15] MEDS: Dextran 70/Hypromellose Tears Eye Drops 15 ml BTL (for Artificials Tears) BOTH EYES SCH ×2 (11:00→20:12)
[2020-07-15] MEDS: Nitro Patch/OINT Remove PATCH PATCH OFF SCH (20:18)
[2020-07-16 05:40] LABS: ABS Basophils 0.1 10^3/ul (0-0.2); ABS Eosinophils 0.2 10^3/ul (0-0.6); ABS Lymphocytes 1.3 10^3/ul (1.0-4.8); ABS Neutrophils 4.4 10^3/ul (1.5-7.7); Hematocrit 40 % (35-47); Hemoglobin 13.7 g/dL (12.0-16.0); Lymphocyte % 18.2 %; Mean Corpuscular HGB Conc 34 g/dL (31-36); Mean Corpuscular Hemoglobin 26 pg (27-31); Mean Corpuscular Volume 76 fL (80-97); Mean Platelet Volume 10.9 fL (7.4-10.4); Nucleated Red Blood Cells % 0.1; Platelet Count 186 10^3/uL (150-450); Red Blood Count 5.27 10^6 /uL (3.70-4.87); Red Cell Distribution Width 16 % (10-15)
[2020-07-16] MEDS: Lifitegrast (NF) 1 BTL BOTH EYES SCH (07:40)
[2020-07-16] MEDS: Insulin GLARGINE 100 un/ml 10 ml VIAL SUBCUT SCH (07:43)
[2020-07-16] MEDS: Dextran 70/Hypromellose Tears Eye Drops 15 ml BTL (for Artificials Tears) BOTH EYES SCH ×3 (09:10→20:34)
[2020-07-16] MEDS: Nitroglycerin 0.1 mg/hr PATCH (2.5 mg) TRANSDERM SCH (09:10)
[2020-07-16] MEDS: Calcium Carb (TUMS) 500 mg CHEW TAB PO PRN (14:13)
[2020-07-16 14:33] LABS: Urine Appearance Clear; Urine Bilirubin Negative (Negative); Urine Blood Negative (Negative); Urine Color Yellow; Urine Glucose 3+(>=500 mg/dL) (Negative); Urine Ketones Negative (Negative); Urine Nitrite Negative (Negative); Urine Protein Negative (Negative); Urine Specific Gravity 1.021 (1.010-1.030); Urine Urobilinogen Negative (Negative)
[2020-07-16] MEDS: Nitro Patch/OINT Remove PATCH PATCH OFF SCH (21:09)
[2020-07-16] MEDS: Analgesic BALM 114 GM TOPICAL PRN (23:50)
[2020-07-17] MEDS: Lifitegrast (NF) 1 BTL BOTH EYES SCH (07:59)
[2020-07-17] MEDS: Insulin GLARGINE 100 un/ml 10 ml VIAL SUBCUT SCH (08:10)
[2020-07-17] MEDS: Nitroglycerin 0.1 mg/hr PATCH (2.5 mg) TRANSDERM SCH (08:11)
[2020-07-17] MEDS: Bacitracin OINTMENT TUBE TOPICAL SCH ×2 (09:31→19:55)
[2020-07-17] MEDS: Analgesic BALM 114 GM TOPICAL PRN (09:53)
[2020-07-17] MEDS: Dextran 70/Hypromellose Tears Eye Drops 15 ml BTL (for Artificials Tears) BOTH EYES SCH ×2 (09:55→19:57)
[2020-07-17] MEDS: Nitro Patch/OINT Remove PATCH PATCH OFF SCH (20:13)
[2020-07-18 04:39] LABS: Albumin 3.5 g/dL (3.2-5.2); Albumin/Globulin Ratio 1.1 (1-3); Calcium 9.3 mg/dL (8.6-10.3); EGFR Non-African American 61.2 (>60); Globulin 3.2 g/dL (2-4); Potassium 3.8 mmol/L (3.5-5.0); Total Bilirubin 0.6 mg/dL (0.2-1.0); Total Protein 6.7 g/dL (6.4-8.9)
[2020-07-18] MEDS: Lifitegrast (NF) 1 BTL BOTH EYES SCH (08:21)
[2020-07-18] MEDS: Dextran 70/Hypromellose Tears Eye Drops 15 ml BTL (for Artificials Tears) BOTH EYES SCH ×2 (08:23→20:00)
[2020-07-18] MEDS: Nitroglycerin 0.1 mg/hr PATCH (2.5 mg) TRANSDERM SCH (08:23)
[2020-07-18] MEDS: Insulin GLARGINE 100 un/ml 10 ml VIAL SUBCUT SCH (08:23)
[2020-07-18] MEDS: Bacitracin OINTMENT TUBE TOPICAL SCH ×2 (11:09→20:01)
[2020-07-18] MEDS: Senna TAB 8.6 mg TAB PO PRN (20:00)
[2020-07-18] MEDS: Calcium Carb (TUMS) 500 mg CHEW TAB PO PRN (20:00)
[2020-07-18] MEDS: Nitro Patch/OINT Remove PATCH PATCH OFF SCH (20:03)
[2020-07-18] MEDS: Analgesic BALM 114 GM TOPICAL PRN (20:09)
[2020-07-19] MEDS: Insulin GLARGINE 100 un/ml 10 ml VIAL SUBCUT SCH (08:12)
[2020-07-19] MEDS: Dextran 70/Hypromellose Tears Eye Drops 15 ml BTL (for Artificials Tears) BOTH EYES SCH ×2 (08:13→22:12)
[2020-07-19] MEDS: Bacitracin OINTMENT TUBE TOPICAL SCH ×2 (08:13→23:17)
[2020-07-19] MEDS: Lifitegrast (NF) 1 BTL BOTH EYES SCH (08:14)
[2020-07-19] MEDS: Nitroglycerin 0.1 mg/hr PATCH (2.5 mg) TRANSDERM SCH (08:15)
[2020-07-19] MEDS: Senna TAB 8.6 mg TAB PO PRN (23:16)
[2020-07-19] MEDS: Analgesic BALM 114 GM TOPICAL PRN (23:17)
[2020-07-19] MEDS: Nitro Patch/OINT Remove PATCH PATCH OFF SCH (23:26)
[2020-07-20] MEDS: Dextran 70/Hypromellose Tears Eye Drops 15 ml BTL (for Artificials Tears) BOTH EYES SCH ×2 (09:00→21:56)
[2020-07-20] MEDS: Lifitegrast (NF) 1 BTL BOTH EYES SCH (09:00)
[2020-07-20] MEDS: Insulin GLARGINE 100 un/ml 10 ml VIAL SUBCUT SCH (09:01)
[2020-07-20] MEDS: Nitroglycerin 0.1 mg/hr PATCH (2.5 mg) TRANSDERM SCH (09:01)
[2020-07-20] MEDS: Bacitracin OINTMENT TUBE TOPICAL SCH ×2 (09:06→22:35)
[2020-07-20] MEDS: Nitro Patch/OINT Remove PATCH PATCH OFF SCH (21:59)
[2020-07-20] MEDS: Analgesic BALM 114 GM TOPICAL PRN (22:35)
[2020-07-21 06:36] LABS: ABS Basophils 0.1 10^3/ul (0-0.2); ABS Eosinophils 0.2 10^3/ul (0-0.6); ABS Lymphocytes 1.2 10^3/ul (1.0-4.8); ABS Monocytes 0.8 10^3/ul (0-0.8); ABS Neutrophils 2.9 10^3/ul (1.5-7.7); Eosinophil % 3.4 %; Hematocrit 40 % (35-47); Hemoglobin 13.2 g/dL (12.0-16.0); Lymphocyte % 23.6 %; Mean Corpuscular HGB Conc 33 g/dL (31-36); Mean Corpuscular Hemoglobin 25 pg (27-31); Mean Corpuscular Volume 77 fL (80-97); Mean Platelet Volume 10.7 fL (7.4-10.4); Platelet Count 173 10^3/uL (150-450); Red Blood Count 5.18 10^6 /uL (3.70-4.87); Red Cell Distribution Width 16 % (10-15); White Blood Count 5.2 10^3/uL (3.5-10.8)
[2020-07-21] MEDS: Nitroglycerin 0.1 mg/hr PATCH (2.5 mg) TRANSDERM SCH (08:19)
[2020-07-21] MEDS: Lifitegrast (NF) 1 BTL BOTH EYES SCH (08:20)
[2020-07-21] MEDS: Insulin GLARGINE 100 un/ml 10 ml VIAL SUBCUT SCH (08:29)
[2020-07-21] MEDS: Bacitracin OINTMENT TUBE TOPICAL SCH ×2 (09:35→20:14)
[2020-07-21] MEDS: Dextran 70/Hypromellose Tears Eye Drops 15 ml BTL (for Artificials Tears) BOTH EYES SCH ×2 (09:35→20:15)
[2020-07-21] MEDS: Senna TAB 8.6 mg TAB PO PRN (20:16)
[2020-07-21] MEDS: Nitro Patch/OINT Remove PATCH PATCH OFF SCH (21:13)
[2020-07-21] MEDS: Analgesic BALM 114 GM TOPICAL PRN (22:22)
[2020-07-22] MEDS: Nitroglycerin 0.1 mg/hr PATCH (2.5 mg) TRANSDERM SCH (08:34)
[2020-07-22] MEDS: Insulin GLARGINE 100 un/ml 10 ml VIAL SUBCUT SCH (08:35)
[2020-07-22] MEDS: Dextran 70/Hypromellose Tears Eye Drops 15 ml BTL (for Artificials Tears) BOTH EYES SCH ×2 (09:55→20:44)
[2020-07-22] MEDS: Bacitracin OINTMENT TUBE TOPICAL SCH ×2 (09:55→20:44)
[2020-07-22] MEDS: Lifitegrast (NF) 1 BTL BOTH EYES SCH (09:55)
[2020-07-22] MEDS: Calcium Carb (TUMS) 500 mg CHEW TAB PO PRN (16:14)
[2020-07-22] MEDS: Analgesic BALM 114 GM TOPICAL PRN (20:45)
[2020-07-22] MEDS: Nitro Patch/OINT Remove PATCH PATCH OFF SCH (20:48)
[2020-07-23] MEDS: Insulin GLARGINE 100 un/ml 10 ml VIAL SUBCUT SCH (08:13)
[2020-07-23] MEDS: Nitroglycerin 0.1 mg/hr PATCH (2.5 mg) TRANSDERM SCH (08:38)
[2020-07-23] MEDS: Lifitegrast (NF) 1 BTL BOTH EYES SCH (11:26)
[2020-07-23] MEDS: Dextran 70/Hypromellose Tears Eye Drops 15 ml BTL (for Artificials Tears) BOTH EYES SCH ×2 (11:26→20:17)
[2020-07-23] MEDS: Bacitracin OINTMENT TUBE TOPICAL SCH ×2 (11:26→20:21)
[2020-07-23] MEDS: Calcium Carb (TUMS) 500 mg CHEW TAB PO PRN (16:35)
[2020-07-23] MEDS: Nitro Patch/OINT Remove PATCH PATCH OFF SCH (20:21)
[2020-07-23] MEDS: Analgesic BALM 114 GM TOPICAL PRN (23:35)
[2020-07-24] MEDS: Insulin GLARGINE 100 un/ml 10 ml VIAL SUBCUT SCH (09:10)
[2020-07-24] MEDS: Dextran 70/Hypromellose Tears Eye Drops 15 ml BTL (for Artificials Tears) BOTH EYES SCH ×2 (10:17→20:24)
[2020-07-24] MEDS: Nitroglycerin 0.1 mg/hr PATCH (2.5 mg) TRANSDERM SCH (10:18)
[2020-07-24] MEDS: Bacitracin OINTMENT TUBE TOPICAL SCH ×2 (10:18→20:24)
[2020-07-24] MEDS: Lifitegrast (NF) 1 BTL BOTH EYES SCH (10:18)
[2020-07-24] MEDS: Nitro Patch/OINT Remove PATCH PATCH OFF SCH (20:24)
[2020-07-24] MEDS: Analgesic BALM 114 GM TOPICAL PRN (20:24)
[2020-07-25] MEDS: Analgesic BALM 114 GM TOPICAL PRN ×2 (00:05→12:51)
[2020-07-25 04:27] VITALS: BP 118/36
[2020-07-25 04:38] LABS: Potassium 3.6 mmol/L (3.5-5.0)
[2020-07-25 04:39] LABS: Albumin 3.4 g/dL (3.2-5.2); Albumin/Globulin Ratio 1.1 (1-3); BUN/Creatinine Ratio 24.7 (8-20); Calcium 9.3 mg/dL (8.6-10.3); EGFR Non-African American 55.4 (>60); Globulin 3.1 g/dL (2-4); Total Bilirubin 0.5 mg/dL (0.2-1.0); Total Protein 6.5 g/dL (6.4-8.9)
[2020-07-25] MEDS ORDERED: Insulin GLARGINE 100 un/ml 10 ml VIAL SUBCUT SCH (07:30)
[2020-07-25] MEDS: Nitroglycerin 0.1 mg/hr PATCH (2.5 mg) TRANSDERM SCH (10:23)
[2020-07-25] MEDS: Bacitracin OINTMENT TUBE TOPICAL SCH (10:25)
[2020-07-25] MEDS: Lifitegrast (NF) 1 BTL BOTH EYES SCH (10:25)
[2020-07-25] MEDS: Dextran 70/Hypromellose Tears Eye Drops 15 ml BTL (for Artificials Tears) BOTH EYES SCH (10:25)
== END 2020-07-25 14:38 | disposition home health service (06) | DRG 57 ==
LOC: PMRU 14:46
PROVIDERS: ADMIT Physical Medicine & Rehabilitation; ATTEND Physical Medicine & Rehabilitation

== ENCOUNTER 2021-02-03 20:30 | Inpatient (IN) ==
[2021-02-03] MEDS ORDERED: NS 0.9% 1000 ml BAG 1,000 ML IV ONE (21:47)
[2021-02-03] MEDS ORDERED: cefTRIAXone 1 gm/50 mL NS BAG 1 GM/50 ML BAG IV ONE (22:02)
[2021-02-03 23:23] LABS: Hematocrit 33 % (35-47); Hemoglobin 11.3 g/dL (12.0-16.0); Mean Corpuscular HGB Conc 34 g/dL (31-36); Mean Corpuscular Hemoglobin 27 pg (27-31); Mean Corpuscular Volume 78 fL (80-97); Mean Platelet Volume 11.6 fL (7.4-10.4); Platelet Count 76 10^3/uL (150-450); Red Blood Count 4.19 10^6 /uL (3.70-4.87); Red Cell Distribution Width 15 % (10-15); White Blood Count 6.4 10^3/uL (3.5-10.8)
[2021-02-03 23:26] LABS: Urine Appearance Cloudy; Urine Bilirubin Negative (Negative); Urine Blood Negative (Negative); Urine Color Amber; Urine Glucose 3+(>=500 mg/dL) (Negative); Urine Ketones Negative (Negative); Urine Nitrite Negative (Negative); Urine Protein 2+(100 mg/dL) (Negative); Urine Specific Gravity 1.018 (1.002-1.030); Urine Urobilinogen Negative (Negative)
[2021-02-03 23:33] LABS: Albumin 3.6 g/dL (3.2-5.2); Albumin/Globulin Ratio 0.9 (1-3); C Reactive Protein 155.27 mg/L (<8.01); Calcium 8.9 mg/dL (8.6-10.3); EGFR African American 57.4 (>60); EGFR Non-African American 47.4 (>60); Total Bilirubin 2.2 mg/dL (0.2-1.0); Total Protein 7.6 g/dL (6.4-8.9)
[2021-02-03 23:41] LABS: Influenza A Molecular Negative (Negative); Influenza B Molecular Negative (Negative)
[2021-02-04 00:39] LABS: Urine Bacteria 1+ (Absent); Urine Red Blood Cell 2+(6-10/hpf) (Absent); Urine Squamous Epithelial Cell Present (Absent); Urine White Blood Cell 3+(>20/hpf) (Absent)
[2021-02-04] MEDS ORDERED: Calcium Carb (TUMS) 500 mg CHEW TAB PO PRN (02:30)
[2021-02-04] MEDS ORDERED: Azithromycin 500 mg/250 ml NS 500 MG/250 ML BAG IVPB ONE (02:36)
[2021-02-04 02:38] LABS: Anisocytosis 1+; Microcytosis 1+; RBC Morphology Normal (Normal)
[2021-02-04 02:40] LABS: Magnesium 1.8 mg/dL (1.9-2.7)
[2021-02-04] MEDS ORDERED: Dextrose 50% Syringe 50 ml 25 GM/50 ML SYRINGE IV PUSH PRN (02:42)
[2021-02-04 02:54] LABS: ABS Lymphocytes 0.8 10^3/ul (1.0-4.8); ABS Monocytes 1.7 10^3/ul (0-0.8); ABS Neutrophils 3.8 10^3/ul (1.5-7.7); Eosinophil % 0.1 %; Lymphocyte % 12.2 %; Nucleated Red Blood Cells % 0.1
[2021-02-04 02:58] LABS: RBC Parasite Smear POSITIVE (No Parasite)
[2021-02-04] MEDS ORDERED: SELENIUM 100 MCG PO SCH (09:00)
[2021-02-04] MEDS ORDERED: ZINC GLUCONATE ZINC PICOLINATE 30 MG PO SCH (09:00)
[2021-02-04] MEDS ORDERED: CLOBETASOL TOPICAL SCH (09:00)
[2021-02-04 09:14] LABS: Hematocrit 31 % (35-47); Hemoglobin 10.4 g/dL (12.0-16.0); Mean Corpuscular HGB Conc 34 g/dL (31-36); Mean Corpuscular Hemoglobin 27 pg (27-31); Mean Corpuscular Volume 79 fL (80-97); Mean Platelet Volume 11.2 fL (7.4-10.4); Platelet Count 61 10^3/uL (150-450); Red Cell Distribution Width 15 % (10-15); White Blood Count 5.9 10^3/uL (3.5-10.8)
[2021-02-04 09:24] LABS: Calcium 8.2 mg/dL (8.6-10.3); EGFR African American 69.5 (>60); EGFR Non-African American 57.4 (>60); Potassium 3.9 mmol/L (3.5-5.0)
[2021-02-04] MEDS ORDERED: SELENIUM 200 MCG PO SCH (10:17)
[2021-02-04 10:24] LABS: RBC Morphology Normal (Normal)
[2021-02-04 10:25] LABS: ABS Lymphocytes 0.7 10^3/ul (1.0-4.8); ABS Monocytes 1.7 10^3/ul (0-0.8); ABS Neutrophils 3.4 10^3/ul (1.5-7.7); Eosinophil % 0.5 %; Lymphocyte % 11.5 %
[2021-02-04] MEDS: Cholecalciferol (VIT D3) 1,000 unit TAB PO SCH (10:44)
[2021-02-04] MEDS: Multivitamins/Minerals TAB PO SCH (10:44)
[2021-02-04] MEDS: Nitroglycerin 0.1 mg/hr PATCH (2.5 mg) TRANSDERM SCH (10:48)
[2021-02-04] MEDS ORDERED: Ondansetron 4 mg VIAL 2 MG/ML 2 ml VIAL IV PRN (14:07)
[2021-02-04] MEDS ORDERED: NS 0.9% 1000 ml BAG 1,000 ML IV SCH (18:15)
[2021-02-04] MEDS ORDERED: cefTRIAXone 1 gm/50 mL NS BAG 1 GM/50 ML BAG IVPB SCH (21:00)
[2021-02-04] MEDS: Nitro Patch/OINT Remove PATCH PATCH OFF SCH (22:52)
[2021-02-05] MEDS: Azithromycin 500 mg/250 ml NS 500 MG/250 ML BAG IVPB SCH (02:40)
[2021-02-05 06:27] LABS: Hematocrit 29 % (35-47); Hemoglobin 9.7 g/dL (12.0-16.0); Mean Corpuscular HGB Conc 34 g/dL (31-36); Mean Corpuscular Hemoglobin 26 pg (27-31); Mean Corpuscular Volume 78 fL (80-97); Mean Platelet Volume 10.8 fL (7.4-10.4); Platelet Count 67 10^3/uL (150-450); Red Blood Count 3.67 10^6 /uL (3.70-4.87); Red Cell Distribution Width 16 % (10-15); White Blood Count 6.2 10^3/uL (3.5-10.8)
[2021-02-05 06:37] LABS: Albumin 2.9 g/dL (3.2-5.2); Albumin/Globulin Ratio 0.8 (1-3); Calcium 8.2 mg/dL (8.6-10.3); EGFR African American 69.5 (>60); EGFR Non-African American 57.4 (>60); Globulin 3.6 g/dL (2-4); Magnesium 1.7 mg/dL (1.9-2.7); Phosphorus 2.3 mg/dL (2.5-5.0); Potassium 4.2 mmol/L (3.5-5.0); Total Bilirubin 1.5 mg/dL (0.2-1.0); Total Protein 6.5 g/dL (6.4-8.9)
[2021-02-05 07:30] LABS: RBC Morphology Normal (Normal)
[2021-02-05 07:31] LABS: ABS Lymphocytes 1.1 10^3/ul (1.0-4.8); ABS Monocytes 1.9 10^3/ul (0-0.8); ABS Neutrophils 3.1 10^3/ul (1.5-7.7); Eosinophil % 0.6 %; Lymphocyte % 18.3 %; Nucleated Red Blood Cells % 0.1
[2021-02-05] MEDS: Cholecalciferol (VIT D3) 1,000 unit TAB PO SCH (08:44)
[2021-02-05] MEDS: Multivitamins/Minerals TAB PO SCH (08:44)
[2021-02-05] MEDS: Nitroglycerin 0.1 mg/hr PATCH (2.5 mg) TRANSDERM SCH (08:45)
[2021-02-05 16:09] LABS: Haptoglobin <14 mg/dL (30 - 200)
[2021-02-05] MEDS: Nitro Patch/OINT Remove PATCH PATCH OFF SCH (21:01)
[2021-02-05] MEDS ORDERED: PAIN RELIEVING RUB (MENTHOL/SALICYLATE) 1 APPLIC TUBE TOPICAL PRN (21:15)
[2021-02-06] MEDS: Azithromycin 500 mg/250 ml NS 500 MG/250 ML BAG IVPB SCH (04:03)
[2021-02-06 04:21] LABS: Anaplasma phagocytophilum Negative (Negative); B. miyamotoi PCR, B Negative (Negative); Babesia divergens/MO-1 Negative (Negative); Babesia ducani Negative (Negative); Ehrlichia chaffeensis Negative (Negative); Ehrlichia ewingii/canis Negative (Negative); Ehrlichia muris eauclairensis Negative (Negative)
[2021-02-06 06:13] LABS: Calcium 8.6 mg/dL (8.6-10.3); Magnesium 1.8 mg/dL (1.9-2.7); Potassium 4.4 mmol/L (3.5-5.0)
[2021-02-06 06:19] LABS: EGFR African American 68.7 (>60); EGFR Non-African American 56.7 (>60); Phosphorus 2.5 mg/dL (2.5-5.0)
[2021-02-06 06:27] LABS: Hematocrit 30 % (35-47); Hemoglobin 10.4 g/dL (12.0-16.0); Mean Corpuscular HGB Conc 35 g/dL (31-36); Mean Corpuscular Hemoglobin 27 pg (27-31); Mean Corpuscular Volume 78 fL (80-97); Mean Platelet Volume 11.3 fL (7.4-10.4); Platelet Count 89 10^3/uL (150-450); Red Blood Count 3.84 10^6 /uL (3.70-4.87); Red Cell Distribution Width 16 % (10-15); White Blood Count 5.5 10^3/uL (3.5-10.8)
[2021-02-06] MEDS ORDERED: Senna TAB 8.6 mg TAB PO PRN (07:09)
[2021-02-06] MEDS ORDERED: Magnesium Hydroxide LIQ 30 ML UDC PO PRN (07:09)
[2021-02-06] MEDS ORDERED: Polyethylene Glycol 3350 17 GM PACKET PO PRN (07:09)
[2021-02-06] MEDS ORDERED: Magnesium Hydroxide LIQ 30 ML UDC PO SCH (09:00)
[2021-02-06] MEDS: Multivitamins/Minerals TAB PO SCH (09:04)
[2021-02-06] MEDS: Cholecalciferol (VIT D3) 1,000 unit TAB PO SCH (09:05)
[2021-02-06] MEDS: Nitroglycerin 0.1 mg/hr PATCH (2.5 mg) TRANSDERM SCH (09:09)
[2021-02-06 11:00] VITALS: BP 127/57
== END 2021-02-06 16:15 | disposition home or self-care (01) | DRG 872 ==
LOC: MED 20:30 → ED 20:30 → OBSVTOIN 02-04 01:44 → MED 02-04 06:54
PROVIDERS: ADMIT Internal Medicine; ATTEND Hospitalist